=== PATIENT | male | born 1970 | race Two or more races ===

== ENCOUNTER 2022-04-05 14:02 | Inpatient (IN) | payer MEDICAID ==
[~2022-04-05] VITALS: Ht 165.1 cm; Wt 110.2 kg
[~2022-04-05 14:02] MED LIST: APIX5TAB PO; AZIT500T66 PO; LEVO750T8 PO; METH750T22 PO
[2022-04-05] MEDS ORDERED: SODIUM CHLORIDE 0.9% 1,000 ML IV ONE (18:00)
[2022-04-05 18:08] LABS: Basophils # (auto) 0.1 10 ^3/uL (0-0.2); Basophils % (auto) 0.6 % (0.0-2.0); Eosinophils # (auto) 0.1 10 ^3/uL (0-0.8); Eosinophils % (auto) 0.4 % (0.0-7.0); Hemoglobin 14.7 g/dL (13.5-17.5); Lymphocytes # (auto) 0.8 10 ^3/uL (0.4-5.4); Lymphocytes % (auto) 6.3 % (10.0-50.0); Mean Corpuscular Hemoglobin 27.1 pg (28.0-32.0); Mean Corpuscular Hgb Conc. 32.7 g/dL (32.0-36.0); Mean Corpuscular Volume 82.7 fL (80.0-100.0); Monocytes # (auto) 0.7 10 ^3/uL (0-1.3); Monocytes % (auto) 5.3 % (0.0-12.0); Neutrophils # (auto) 11.2 10 ^3/uL (1.6-8.6); Neutrophils % (auto) 87.4 % (37.0-80.0); Nucleated Red Blood Cells % 0.2 %; Red Blood Cells 5.44 10^6/uL (4.5-5.90); Red Cell Distribution Width 15.8 % (11.8-14.3); White Blood Cell 12.8 10^3/uL (4.4-10.8)
[2022-04-05 18:16] LABS: Albumin 3.1 g/dL (3.4-5.0); BUN/Creatinine Ratio 17.9; Calcium 9.1 mg/dL (8.5-10.1); Potassium 4.2 mmol/L (3.5-5.1)
[2022-04-05 18:19] LABS: Bilirubin, Total 0.7 mg/dL (0.2-1.0); Total Protein 7.6 g/dL (6.4-8.2)
[2022-04-05 18:49] LABS: CRP High Sensitivity 5.61 mg/dL (< 0.3)
[2022-04-05] MEDS: SODIUM CHLORIDE 0.9% 1,000 ML IV SCH (19:15)
[2022-04-05] MEDS ORDERED: ACETAMINOPHEN 325 MG TAB PO PRN (19:15)
[2022-04-05] MEDS ORDERED: ONDANSETRON HCL 4 MG/2 ML VIAL IV PRN ×2 (19:15→19:45)
[2022-04-05] MEDS ORDERED: DOCUSATE SOD 100 MG CAP PO PRN (19:45)
[2022-04-05] MEDS ORDERED: levoFLOXacin 500MG 100 ML IV SCH (19:52)
[2022-04-05] MEDS ORDERED: cefTRIAXone 1GM/50ML D5W 50 ML IV ONE (20:00)
[2022-04-06 03:29] LABS: Urine Bacteria MOD /hpf (None Seen); Urine Blood 3+ /uL (Negative); Urine Mucus FEW (None Seen); Urine Specific Gravity 1.017 (1.001-1.035); Urine WBC 64 /hpf (0 - 3)
[2022-04-06 06:26] LABS: Basophils # (auto) 0 10 ^3/uL (0-0.2); Basophils % (auto) 0.2 % (0.0-2.0); Eosinophils # (auto) 0 10 ^3/uL (0-0.8); Eosinophils % (auto) 0.1 % (0.0-7.0); Hematocrit 41.9 % (41.0-53.0); Hemoglobin 14.1 g/dL (13.5-17.5); Lymphocytes # (auto) 2.3 10 ^3/uL (0.4-5.4); Lymphocytes % (auto) 16.3 % (10.0-50.0); Mean Corpuscular Hemoglobin 27.3 pg (28.0-32.0); Mean Corpuscular Hgb Conc. 33.7 g/dL (32.0-36.0); Monocytes # (auto) 1.3 10 ^3/uL (0-1.3); Monocytes % (auto) 9.2 % (0.0-12.0); Neutrophils # (auto) 10.6 10 ^3/uL (1.6-8.6); Neutrophils % (auto) 74.2 % (37.0-80.0); Nucleated Red Blood Cells % 0.1 %; Red Blood Cells 5.17 10^6/uL (4.5-5.90); White Blood Cell 14.3 10^3/uL (4.4-10.8)
[2022-04-06 06:55] LABS: Potassium 4.5 mmol/L (3.5-5.1)
[2022-04-06 07:02] LABS: Albumin 2.8 g/dL (3.4-5.0); Bilirubin, Total 0.9 mg/dL (0.2-1.0); Total Protein 7.4 g/dL (6.4-8.2)
[2022-04-06] MEDS ORDERED: cefTRIAXone 1GM/50ML D5W 50 ML IV SCH (09:00)
[2022-04-06] MEDS ORDERED: ENOXAPARIN SOD 40 MG/0.4 ML SYRINGE SC SCH ×2 (10:00)
[2022-04-06] MEDS: APIXABAN 5 MG TAB PO SCH ×3 (11:08→22:45)
[2022-04-06] MEDS: ACETAMINOPHEN 325 MG TAB PO PRN (12:12)
[2022-04-06 14:20] VITALS: BP 86/55
[2022-04-06] MEDS: SODIUM CHLORIDE 0.9% 1,000 ML IV SCH (15:15)
[2022-04-06 15:21] VITALS: BP 96/58
[2022-04-06 17:00] VITALS: BP 83/49
[2022-04-06] MEDS ORDERED: SODIUM CHLORIDE 0.9% 1,000 ML IV ONE (17:15)
[2022-04-06] MEDS ORDERED: CIPROFLOXACIN 400MG/200ML 200 ML IV ONE (17:30)
[2022-04-06] MEDS ORDERED: CLINDAMYCIN 600MG IV 50 ML IV ONE (17:30)
[2022-04-06 20:00] VITALS: BP 89/46
[2022-04-06] MEDS ORDERED: DAPTOmycin 500 MG in SODIUM CHL 0.9% 50 ML IV SCH (20:00)
[2022-04-06 22:00] VITALS: BP 89/46
[2022-04-06] MEDS ORDERED: CLINDAMYCIN 600MG IV 50 ML IV SCH (22:00)
[2022-04-07] VITALS (7 sets, daily range): BP systolic 86–174; BP diastolic 56–88
[2022-04-07] MEDS: SODIUM CHLORIDE 0.9% 1,000 ML IV SCH ×5 (01:15→21:15)
[2022-04-07] MEDS: CIPROFLOXACIN 400MG/200ML 200 ML IV SCH ×4 (02:09→22:56)
[2022-04-07 08:04] LABS: Basophils # (auto) 0 10 ^3/uL (0-0.2); Eosinophils # (auto) 0.2 10 ^3/uL (0-0.8); Monocytes # (auto) 0.8 10 ^3/uL (0-1.3); Neutrophils # (auto) 6.6 10 ^3/uL (1.6-8.6); White Blood Cell 9.2 10^3/uL (4.4-10.8)
[2022-04-07 08:06] LABS: Basophils % (auto) 0.3 % (0.0-2.0); Eosinophils % (auto) 2.1 % (0.0-7.0); Hematocrit 40.2 % (41.0-53.0); Hemoglobin 13.3 g/dL (13.5-17.5); Lymphocytes # (auto) 1.6 10 ^3/uL (0.4-5.4); Mean Corpuscular Hemoglobin 26.9 pg (28.0-32.0); Mean Corpuscular Volume 81.3 fL (80.0-100.0); Monocytes % (auto) 8.8 % (0.0-12.0); Neutrophils % (auto) 71.8 % (37.0-80.0); Nucleated Red Blood Cells % 0.1 %; Red Blood Cells 4.94 10^6/uL (4.5-5.90); Red Cell Distribution Width 15.8 % (11.8-14.3)
[2022-04-07 08:33] LABS: Potassium 4.2 mmol/L (3.5-5.1)
[2022-04-07 08:36] LABS: BUN/Creatinine Ratio 20.7
[2022-04-07] MEDS: APIXABAN 5 MG TAB PO SCH ×2 (11:05→22:56)
[2022-04-07] MEDS: ACETAMINOPHEN 325 MG TAB PO PRN (11:21)
[2022-04-08 05:00] VITALS: BP 139/93
[2022-04-08] MEDS: CIPROFLOXACIN 400MG/200ML 200 ML IV SCH (06:19)
[2022-04-08] MEDS: SODIUM CHLORIDE 0.9% 1,000 ML IV SCH (07:42)
[2022-04-08 09:00] VITALS: BP 149/87
[2022-04-08] MEDS: APIXABAN 5 MG TAB PO SCH ×2 (09:45→21:46)
[2022-04-08 13:00] VITALS: BP 150/97
[2022-04-08] MEDS ORDERED: MEROPENEM 1GM IVPB 100 ML IV ONE (13:15)
[2022-04-08] MEDS ORDERED: diphenhdrAMINE HCL 25 MG CAP PO ONE (14:45)
[2022-04-08] MEDS ORDERED: diphenhdrAMINE HCL 25 MG CAP PO PRN (15:00)
[2022-04-08] MEDS: MEROPENEM 1GM IVPB 100 ML IV SCH ×2 (15:07→22:57)
[2022-04-08 16:43] VITALS: BP 89/58
[2022-04-08 22:00] VITALS: BP 141/80
[2022-04-09 05:18] VITALS: BP 119/84
[2022-04-09] MEDS: MEROPENEM 1GM IVPB 100 ML IV SCH (05:34)
[2022-04-09 09:00] VITALS: BP 154/94
[2022-04-09] MEDS: APIXABAN 5 MG TAB PO SCH ×2 (09:59→23:41)
[2022-04-09] MEDS: LINEZOLID 600MG/300ML 300 ML IV SCH ×2 (12:42→23:41)
[2022-04-09 12:50] VITALS: BP 116/77
[2022-04-09] MEDS: AZTREONAM 1GM INJ 1 GM in D5W 5% 50 ML IV SCH ×2 (14:49→21:33)
[2022-04-09 16:43] VITALS: BP 147/108
[2022-04-09 22:00] VITALS: BP 101/66
[2022-04-10 05:00] VITALS: BP 147/90
[2022-04-10] MEDS: AZTREONAM 1GM INJ 1 GM in D5W 5% 50 ML IV SCH ×3 (05:07→22:57)
[2022-04-10 05:10] LABS: BUN/Creatinine Ratio 14.3; Calcium 8.6 mg/dL (8.5-10.1)
[2022-04-10 05:32] LABS: Hemoglobin 13.2 g/dL (13.5-17.5); Red Cell Distribution Width 15.9 % (11.8-14.3)
[2022-04-10 05:34] LABS: Hematocrit 39.5 % (41.0-53.0); Mean Corpuscular Hgb Conc. 33.5 g/dL (32.0-36.0); Mean Corpuscular Volume 80.7 fL (80.0-100.0); White Blood Cell 5.5 10^3/uL (4.4-10.8)
[2022-04-10 05:42] LABS: Basophils % (manual) 0 (0.0-2.0); Blast Cells 0; Metamyelocytes % 0; Promyelocytes % 0; Reactive Lymphocytes 0
[2022-04-10 06:47] LABS: Band Neutrophils % (manual) 2; Eosinophils % (manual) 2 (0-7); Lymphocytes % (manual) 35 (10.0-50.0); Monocytes % (manual) 9 (0-12); Myelocytes % 2
[2022-04-10 09:00] VITALS: BP 155/96
[2022-04-10] MEDS: LINEZOLID 600MG/300ML 300 ML IV SCH ×2 (10:29→22:57)
[2022-04-10] MEDS: APIXABAN 5 MG TAB PO SCH ×2 (10:29→22:58)
[2022-04-10 12:58] VITALS: BP 155/92
[2022-04-10 16:51] VITALS: BP 154/90
[2022-04-10 22:00] VITALS: BP 106/76
[2022-04-10] MEDS: METHOCARBAMOL 500 MG TAB PO SCH (23:18)
[2022-04-11 05:00] VITALS: BP 119/82
[2022-04-11] MEDS: AZTREONAM 1GM INJ 1 GM in D5W 5% 50 ML IV SCH ×3 (06:00→22:58)
[2022-04-11 09:00] VITALS: BP 163/99
[2022-04-11] MEDS: LINEZOLID 600MG/300ML 300 ML IV SCH ×2 (09:51→22:59)
[2022-04-11] MEDS: METHOCARBAMOL 500 MG TAB PO SCH ×2 (09:52→22:59)
[2022-04-11] MEDS: APIXABAN 5 MG TAB PO SCH ×2 (09:52→22:59)
[2022-04-11 13:00] VITALS: BP 155/108
[2022-04-11 17:00] VITALS: BP 155/97
[2022-04-11 22:00] VITALS: BP 135/88
[2022-04-11] MEDS: Juven Fruit Punch Powder PACKET 28.8gm PO SCH (22:59)
[2022-04-12 05:00] VITALS: BP 100/70
[2022-04-12] MEDS: AZTREONAM 1GM INJ 1 GM in D5W 5% 50 ML IV SCH (06:13)
[2022-04-12 09:52] VITALS: BP 165/99
[2022-04-12] MEDS: APIXABAN 5 MG TAB PO SCH ×2 (10:12→23:09)
[2022-04-12] MEDS: LINEZOLID 600MG/300ML 300 ML IV SCH (10:12)
[2022-04-12] MEDS: METHOCARBAMOL 500 MG TAB PO SCH ×2 (10:13→23:10)
[2022-04-12 12:15] VITALS: BP 105/74
[2022-04-12] MEDS: Juven Fruit Punch Powder PACKET 28.8gm PO SCH ×2 (14:54→23:10)
[2022-04-12] MEDS ORDERED: LINE1TAB6 PO (16:27)
[2022-04-12 16:56] VITALS: BP 132/90
[2022-04-12 22:00] VITALS: BP 132/75
[2022-04-12] MEDS: LINEZOLID 600MG TABLET PO SCH (23:10)
[2022-04-13 05:00] VITALS: BP 115/81
[2022-04-13 08:37] VITALS: BP 144/97
[2022-04-13] MEDS: LINEZOLID 600MG TABLET PO SCH (10:09)
[2022-04-13] MEDS: APIXABAN 5 MG TAB PO SCH (10:11)
[2022-04-13] MEDS: Juven Fruit Punch Powder PACKET 28.8gm PO SCH (10:11)
[2022-04-13] MEDS: METHOCARBAMOL 500 MG TAB PO SCH (10:11)
[2022-04-13 12:05] VITALS: BP 132/94
[2022-04-13 14:46] VITALS: BP 107/82
== END 2022-04-13 14:30 | disposition home or self-care (01) | DRG 720 ==
LOC: EDBD 14:02 → ER 14:02 → OVERFLOW 19:04 → WEST WING 04-06 14:09
PROVIDERS: ADMIT Nurse Practitioner Family; ATTEND Student in an Organized Health Care Education/Training Program
DX: A41.02 Sepsis due to Methicillin resistant Staphylococcus aureus (principal); G82.50 Quadriplegia, unspecified; E44.1 Mild protein-calorie malnutrition; L89.152 Pressure ulcer of sacral region, stage 2; N12 Tubulo-interstitial nephritis, not specified as acute or chronic; E66.9 Obesity, unspecified; K21.9 Gastro-esophageal reflux disease without esophagitis; L30.9 Dermatitis, unspecified; Z20.822 Contact with and (suspected) exposure to COVID-19; Z88.1 Allergy status to other antibiotic agents; Z93.3 Colostomy status; Z88.0 Allergy status to penicillin; Z82.49 Family history of ischemic heart disease and other diseases of the circulatory system; Z74.01 Bed confinement status; Z68.27 Body mass index [BMI] 27.0-27.9, adult; Z88.8 Allergy status to other drugs, medicaments and biological substances; Z87.440 Personal history of urinary (tract) infections
CPT/HCPCS: 36415; 71045; 80048; 80053; 81001; 83605; 83880; 85007; 85025; 85027; 86141; 87040; 87077; 87086; 87088; 87186; 87426; 93005; 93306; G0378; J1956; J2185; J7060

== ENCOUNTER 2022-08-07 12:25 | Emergency (ER) | payer MEDICAID ==
[~2022-08-07] VITALS: Ht 182.9 cm; Wt 95.5 kg
[~2022-08-07 12:25] MED LIST changes: +LINE1TAB6 PO
[2022-08-07 13:39] LABS: Basophils # (auto) 0 10 ^3/uL (0-0.2); Hematocrit 40.8 % (41.0-53.0); Hemoglobin 14.1 g/dL (13.5-17.5); Lymphocytes # (auto) 1.3 10 ^3/uL (0.4-5.4); Mean Corpuscular Hgb Conc. 34.6 g/dL (32.0-36.0); White Blood Cell 7.1 10^3/uL (4.4-10.8)
[2022-08-07 13:41] LABS: Basophils % (auto) 0.4 % (0.0-2.0); Eosinophils # (auto) 0.2 10 ^3/uL (0-0.8); Eosinophils % (auto) 3.4 % (0.0-7.0); Lymphocytes % (auto) 18.2 % (10.0-50.0); Mean Corpuscular Hemoglobin 25.9 pg (28.0-32.0); Mean Corpuscular Volume 74.9 fL (80.0-100.0); Monocytes # (auto) 0.4 10 ^3/uL (0-1.3); Monocytes % (auto) 5.4 % (0.0-12.0); Neutrophils # (auto) 5.2 10 ^3/uL (1.6-8.6); Neutrophils % (auto) 72.6 % (37.0-80.0); Nucleated Red Blood Cells % 0.8 %; Red Blood Cells 5.44 10^6/uL (4.5-5.90)
[2022-08-07 14:12] LABS: Albumin 2.7 g/dL (3.4-5.0); BUN/Creatinine Ratio 30.3; Calcium 9.4 mg/dL (8.5-10.1)
[2022-08-07 14:15] LABS: Bilirubin, Total 0.6 mg/dL (0.2-1.0); Total Protein 7.3 g/dL (6.4-8.2)
[2022-08-07 19:40] LABS: Urine Bacteria FEW /hpf (None Seen); Urine Blood 1+ /uL (Negative); Urine Specific Gravity 1.008 (1.001-1.035); Urine WBC 293 /hpf (0 - 3)
[2022-08-07] MEDS ORDERED: CIPR-173 PO (20:17)
[2022-08-07] MEDS ORDERED: CIPROFLOXACIN HCL 500 MG TAB PO ONE (20:30)
[2022-08-08 11:20] VITALS: BP 120/76
== END 2022-08-08 12:19 | disposition home or self-care (01) ==
LOC: EDBD 12:25 → ER 12:25
DX: Z46.6 Encounter for fitting and adjustment of urinary device (principal); N39.0 Urinary tract infection, site not specified; K21.9 Gastro-esophageal reflux disease without esophagitis; Z79.2 Long term (current) use of antibiotics; Z79.899 Other long term (current) drug therapy; Z88.0 Allergy status to penicillin; Z88.1 Allergy status to other antibiotic agents
CPT/HCPCS: 36415; 51702; 80053; 81001; 85025

== ENCOUNTER 2023-02-16 17:35 | Inpatient (IN) | payer MEDICARE, MEDICAID ==
[~2023-02-16] VITALS: Ht 182.9 cm; Wt 108.9 kg
[~2023-02-16 17:35] MED LIST changes: +ATOR20TA50 PO; -AZIT500T66 PO; +CIPR-173 PO; -LEVO750T8 PO; -LINE1TAB6 PO; +METH-1182 PO; -METH750T22 PO
[2023-02-16 18:40] VITALS: PULSE 75; RESP 13; O2SAT 93
[2023-02-16 19:30] VITALS: PULSE 75; RESP 20; O2SAT 94
[2023-02-16 19:35] LABS: Basophils # (auto) 0 10 ^3/uL (0-0.2); Eosinophils # (auto) 0.2 10 ^3/uL (0-0.8); Lymphocytes # (auto) 1.4 10 ^3/uL (0.4-5.4); Mean Corpuscular Hgb Conc. 33.4 g/dL (32.0-36.0); Monocytes # (auto) 0.3 10 ^3/uL (0-1.3); White Blood Cell 4.9 10^3/uL (4.4-10.8)
[2023-02-16 19:37] LABS: Basophils % (auto) 0.8 % (0.0-2.0); Eosinophils % (auto) 3.6 % (0.0-7.0); Hematocrit 46.3 % (41.0-53.0); Hemoglobin 15.4 g/dL (13.5-17.5); Lymphocytes % (auto) 27.9 % (10.0-50.0); Mean Corpuscular Volume 78.1 fL (80.0-100.0); Monocytes % (auto) 6.7 % (0.0-12.0); Nucleated Red Blood Cells % 0.3 %; Red Blood Cells 5.93 10^6/uL (4.5-5.90); Red Cell Distribution Width 18.2 % (11.8-14.3)
[2023-02-16 19:49] LABS: Alanine Aminotransferase 12 U/L (7-40); Albumin 3.8 g/dL (3.2-4.8); Alkaline Phosphatase 119 U/L (46-116); Anion Gap 6 (5-15); Aspartate Aminotransferase 12 U/L (13-40); BUN/Creatinine Ratio 11.8 (10.0-20.0); Bilirubin, Total 0.4 mg/dL (0.2-1.0); Blood Urea Nitrogen 9 mg/dL (9-23); Calcium 9.3 mg/dL (8.7-10.4); Carbon Dioxide 26 mmol/L (20-30); Chloride 107 mmol/L (98-107); Glucose 135 mg/dL (74-106); Potassium 4.1 mmol/L (3.5-5.1); Sodium 139 mmol/L (136-145); Total Protein 7.5 g/dL (5.7-8.2)
[2023-02-16 20:13] LABS: Urine Bacteria FEW /hpf (None Seen); Urine Blood TRACE /uL (Negative); Urine Budding Yeast FEW /hpf (None Seen); Urine Clarity HAZY (Clear); Urine Color Yellow (Yellow); Urine Mucus FEW (None Seen); Urine Protein, UAD 1+ (Negative); Urine Specific Gravity 1.018 (1.001-1.035); Urine Urobilinogen Normal (Negative); Urine WBC 49 /hpf (0 - 3); Urine pH 7.5 (5.0-8.0)
[2023-02-16] MEDS ORDERED: DOCUSATE SOD 100 MG CAP PO PRN (21:00)
[2023-02-16] MEDS ORDERED: HYDROcodone-ACET 5/325MG TAB PO PRN (21:00)
[2023-02-16] MEDS ORDERED: ACETAMINOPHEN 325 MG TAB PO PRN (21:00)
[2023-02-16] MEDS ORDERED: ONDANSETRON HCL 4 MG/2 ML VIAL IV PRN (21:00)
[2023-02-16] MEDS: levoFLOXacin 500MG 100 ML IV SCH ×2 (22:00→22:14)
[2023-02-16] MEDS: SODIUM CHLORIDE 0.9% 1,000 ML IV SCH (22:10)
[2023-02-16] MEDS: FAMOTIDINE (10MG/ML) 2ML VL IV SCH (22:14)
[2023-02-16] MEDS ORDERED: MORPHINE SULFATE INJ 2 MG/ml SYRG IV PRN (22:45)
[2023-02-16] MEDS ORDERED: NITROGLYCERIN 0.4 MG SL TAB SL PRN (22:45)
[2023-02-17 05:45] LABS: Basophils # (auto) 0 10 ^3/uL (0-0.2); Monocytes # (auto) 0.4 10 ^3/uL (0-1.3); Nucleated Red Blood Cells % 0.2 %; White Blood Cell 5.5 10^3/uL (4.4-10.8)
[2023-02-17 05:48] LABS: Basophils % (auto) 0.6 % (0.0-2.0); Eosinophils # (auto) 0.1 10 ^3/uL (0-0.8); Eosinophils % (auto) 2.6 % (0.0-7.0); Hematocrit 40.5 % (41.0-53.0); Hemoglobin 13.6 g/dL (13.5-17.5); Lymphocytes # (auto) 2.2 10 ^3/uL (0.4-5.4); Lymphocytes % (auto) 39.6 % (10.0-50.0); Mean Corpuscular Hemoglobin 26.2 pg (28.0-32.0); Mean Corpuscular Hgb Conc. 33.7 g/dL (32.0-36.0); Mean Corpuscular Volume 77.9 fL (80.0-100.0); Monocytes % (auto) 6.8 % (0.0-12.0); Neutrophils # (auto) 2.8 10 ^3/uL (1.6-8.6); Neutrophils % (auto) 50.4 % (37.0-80.0); Red Blood Cells 5.19 10^6/uL (4.5-5.90); Red Cell Distribution Width 18.1 % (11.8-14.3)
[2023-02-17 06:06] LABS: Alanine Aminotransferase 11 U/L (7-40); Albumin 3.4 g/dL (3.2-4.8); Alkaline Phosphatase 100 U/L (46-116); Anion Gap 6 (5-15); Aspartate Aminotransferase 8 U/L (13-40); BUN/Creatinine Ratio 13.4 (10.0-20.0); Bilirubin, Total 0.4 mg/dL (0.2-1.0); Blood Urea Nitrogen 9 mg/dL (9-23); Calcium 8.5 mg/dL (8.7-10.4); Carbon Dioxide 25 mmol/L (20-30); Chloride 110 mmol/L (98-107); Glucose 89 mg/dL (74-106); Potassium 3.6 mmol/L (3.5-5.1); Sodium 141 mmol/L (136-145); Total Protein 6.5 g/dL (5.7-8.2)
[2023-02-17 08:24] VITALS: PULSE 71; RESP 19; O2SAT 99
[2023-02-17] MEDS ORDERED: ASPirin 81 mg TAB PO SCH (10:00)
[2023-02-17] MEDS: APIXABAN 5 MG TAB PO SCH ×2 (10:06→21:09)
[2023-02-17] MEDS: FAMOTIDINE (10MG/ML) 2ML VL IV SCH ×2 (10:06→21:09)
[2023-02-17] MEDS ORDERED: TAMS0.4C36 PO (10:12)
[2023-02-17 13:15] VITALS: BP 93/65; PULSE 64; RESP 16; TEMP 98.6; O2SAT 98
[2023-02-17] MEDS: SODIUM CHLORIDE 0.9% 1,000 ML IV SCH (13:46)
[2023-02-17 16:36] VITALS: PULSE 64; RESP 16; O2SAT 98
[2023-02-17 17:00] VITALS: BP 102/70; PULSE 63; RESP 16; TEMP 97.6; O2SAT 98
[2023-02-17 20:00] VITALS: RESP 19; O2SAT 94
[2023-02-17 22:00] VITALS: BP 138/92; PULSE 65; RESP 18; TEMP 98.2; O2SAT 100
[2023-02-17] MEDS: levoFLOXacin 500MG 100 ML IV SCH (22:00)
[2023-02-18] VITALS (7 sets, daily range): BP systolic 125–171; BP diastolic 87–104; PULSE 61–75; RESP 16–19; TEMP 98–98.5; O2SAT 95–100
[2023-02-18] MEDS: SODIUM CHLORIDE 0.9% 1,000 ML IV SCH ×2 (05:31→21:01)
[2023-02-18] MEDS: FAMOTIDINE (10MG/ML) 2ML VL IV SCH ×2 (10:55→21:37)
[2023-02-18] MEDS: APIXABAN 5 MG TAB PO SCH ×2 (10:55→21:37)
[2023-02-18] MEDS: levoFLOXacin 500MG 100 ML IV SCH (21:37)
[2023-02-19 05:00] VITALS: BP 156/102; PULSE 62; RESP 18; TEMP 98.1; O2SAT 95
[2023-02-19 06:52] VITALS: BP 147/100
[2023-02-19] MEDS ORDERED: cloNIDine HCL 0.1 MG TAB PO ONE (07:00)
[2023-02-19 08:00] VITALS: PULSE 65; RESP 18; O2SAT 95
[2023-02-19 09:00] VITALS: BP 159/97; PULSE 65; RESP 18; TEMP 98.4; O2SAT 100
[2023-02-19] MEDS: APIXABAN 5 MG TAB PO SCH (10:00)
[2023-02-19] MEDS: FAMOTIDINE (10MG/ML) 2ML VL IV SCH (10:00)
[2023-02-19] MEDS ORDERED: BACDST PO (10:22)
[2023-02-19] MEDS ORDERED: CIPR-173 PO (10:22)
[2023-02-19 13:00] VITALS: BP 115/83; PULSE 71; RESP 18; TEMP 98.8; O2SAT 96
[2023-02-19] MEDS: SODIUM CHLORIDE 0.9% 1,000 ML IV SCH (15:40)
[2023-02-19 16:46] VITALS: BP 127/97; PULSE 74; RESP 16; TEMP 98.4; O2SAT 97
== END 2023-02-19 19:13 | disposition home health service (06) | DRG 698 ==
LOC: ER 17:35 → EDBD 17:35 → EDUNIT# 17:35 → OVERFLOW 22:40 → CENTRAL 02-17 13:18
PROVIDERS: ADMIT Nurse Practitioner Family; ATTEND Family Medicine
DX: T83.018A Breakdown (mechanical) of other urinary catheter, initial encounter (principal); L89.154 Pressure ulcer of sacral region, stage 4; N39.0 Urinary tract infection, site not specified; I10 Essential (primary) hypertension; E78.00 Pure hypercholesterolemia, unspecified; K21.9 Gastro-esophageal reflux disease without esophagitis; N31.9 Neuromuscular dysfunction of bladder, unspecified; B96.4 Proteus (mirabilis) (morganii) as the cause of diseases classified elsewhere; Y73.2 Prosthetic and other implants, materials and accessory gastroenterology and urology devices associated with adverse incidents; Y92.89 Other specified places as the place of occurrence of the external cause; Z87.440 Personal history of urinary (tract) infections; Z88.0 Allergy status to penicillin; Z88.1 Allergy status to other antibiotic agents; Z93.3 Colostomy status; Z79.899 Other long term (current) drug therapy; B95.62 Methicillin resistant Staphylococcus aureus infection as the cause of diseases classified elsewhere; V89.2XXS Person injured in unspecified motor-vehicle accident, traffic, sequela
CPT/HCPCS: 36415; 76775; 80053; 81001; 85025; 87040; 87086; 87088; 87186; G0378; J1956; J3490

== ENCOUNTER 2023-04-26 15:26 | Inpatient (IN) | payer MEDICARE, MEDICAID ==
[~2023-04-26] VITALS: Ht 172.7 cm; Wt 113.3 kg
[~2023-04-26 15:26] MED LIST changes: +BACDST PO; +TAMS0.4C36 PO
[2023-04-26 17:23] LABS: Hemoglobin 15.1 g/dL (13.5-17.5); Mean Corpuscular Hemoglobin 26.7 pg (28.0-32.0); Mean Corpuscular Hgb Conc. 33.7 g/dL (32.0-36.0); Red Cell Distribution Width 16.7 % (11.8-14.3)
[2023-04-26 17:25] LABS: Hematocrit 44.8 % (41.0-53.0); Mean Corpuscular Volume 79.4 fL (80.0-100.0); Red Blood Cells 5.64 10^6/uL (4.5-5.90); White Blood Cell 6.8 10^3/uL (4.4-10.8)
[2023-04-26 17:26] VITALS: PULSE 14; RESP 14; O2SAT 99
[2023-04-26 17:26] LABS: Basophils % (manual) 0 (0.0-2.0); Blast Cells 0; Metamyelocytes % 0; Myelocytes % 0; Promyelocytes % 0; Reactive Lymphocytes 0
[2023-04-26 17:43] LABS: INR 0.97 (0.9-1.15); Partial Thromboplastin Time 36.5 SEC (24.5-34.5); Prothrombin Time 10.2 sec (9.3-11.8)
[2023-04-26 17:44] LABS: Alanine Aminotransferase 21 U/L (7-40); Albumin 4.3 g/dL (3.2-4.8); Alkaline Phosphatase 102 U/L (46-116); Anion Gap 9 (5-15); Aspartate Aminotransferase 16 U/L (13-40); BUN/Creatinine Ratio 16.2 (10.0-20.0); Blood Urea Nitrogen 11 mg/dL (9-23); Calcium 9.7 mg/dL (8.7-10.4); Carbon Dioxide 25 mmol/L (20-30); Chloride 105 mmol/L (98-107); Glucose 115 mg/dL (74-106); Potassium 4.4 mmol/L (3.5-5.1); Sodium 139 mmol/L (136-145)
[2023-04-26 17:45] LABS: Bilirubin, Total 0.3 mg/dL (0.2-1.0)
[2023-04-26 19:02] LABS: Urine Bacteria NONE SEEN /hpf (None Seen); Urine Blood 3+ /uL (Negative); Urine Budding Yeast MANY /hpf (None Seen); Urine Clarity CLOUDY (Clear); Urine Mucus FEW (None Seen); Urine Protein, UAD 2+ (Negative); Urine Specific Gravity 1.019 (1.001-1.035); Urine Urobilinogen Normal (Negative); Urine WBC 1295 /hpf (0 - 3); Urine WBC Clumps PRESENT /hpf (None Seen)
[2023-04-26 19:06] LABS: Urine Color Yellow (Yellow)
[2023-04-26 19:35] VITALS: PULSE 90; RESP 18; O2SAT 99
[2023-04-26 19:39] LABS: Band Neutrophils % (manual) 2; Eosinophils % (manual) 1 (0-7); Lymphocytes % (manual) 23 (10.0-50.0); Monocytes % (manual) 7 (0-12); Platelet Estimate Adequate
[2023-04-26] MEDS ORDERED: SODIUM CHLORIDE 0.9% 2,750 ML IV ONE ×3 (20:15→23:30)
[2023-04-26] MEDS ORDERED: cefTRIAXone 1GM/50ML D5W 50 ML IV SCH (20:15)
[2023-04-26] MEDS ORDERED: ACETAMINOPHEN 325 MG TAB PO PRN ×2 (20:15→20:45)
[2023-04-26] MEDS ORDERED: DOCUSATE SOD 100 MG CAP PO PRN (20:45)
[2023-04-26] MEDS ORDERED: ONDANSETRON HCL 4 MG/2 ML VIAL IV PRN (20:45)
[2023-04-26] MEDS ORDERED: diphenhdrAMINE HCL 25 MG CAP PO ONE (20:45)
[2023-04-26] MEDS ORDERED: cefTRIAXone W LIDOCAINE 1 GM IM IM ONE (20:45)
[2023-04-26 21:17] LABS: Erythrocyte Sedimentation Rate 50 mm/hr (0-20)
[2023-04-26 21:33] LABS: INR 0.99 (0.9-1.15); Prothrombin Time 10.4 sec (9.3-11.8)
[2023-04-26 21:44] LABS: Lactic Acid w/Reflex 2.7 mmol/L (0.4-2.0)
[2023-04-26] MEDS ORDERED: METHOCARBAMOL 500 MG TAB PO PRN (22:00)
[2023-04-26] MEDS: APIXABAN 5 MG TAB PO SCH (22:29)
[2023-04-27] MEDS ORDERED: SODIUM CHLORIDE 0.9% 2,750 ML IV ONE (00:30)
[2023-04-27 03:44] LABS: Alanine Aminotransferase 17 U/L (7-40); Alkaline Phosphatase 82 U/L (46-116); Anion Gap 8 (5-15); Aspartate Aminotransferase 13 U/L (13-40); BUN/Creatinine Ratio 18.5 (10.0-20.0); Basophils # (auto) 0 10 ^3/uL (0-0.2); Blood Urea Nitrogen 12 mg/dL (9-23); Calcium 8.1 mg/dL (8.7-10.4); Carbon Dioxide 23 mmol/L (20-30); Chloride 110 mmol/L (98-107); Eosinophils # (auto) 0.2 10 ^3/uL (0-0.8); Eosinophils % (auto) 2.2 % (0.0-7.0); Glucose 93 mg/dL (74-106); Hemoglobin 12.6 g/dL (13.5-17.5); Monocytes # (auto) 0.6 10 ^3/uL (0-1.3); Sodium 141 mmol/L (136-145)
[2023-04-27 03:45] LABS: Albumin 3.5 g/dL (3.2-4.8); Bilirubin, Total 0.2 mg/dL (0.2-1.0); Total Protein 6.4 g/dL (5.7-8.2)
[2023-04-27 03:56] LABS: Basophils % (auto) 0.5 % (0.0-2.0); Hematocrit 38.1 % (41.0-53.0); Lymphocytes # (auto) 2.4 10 ^3/uL (0.4-5.4); Lymphocytes % (auto) 31.4 % (10.0-50.0); Mean Corpuscular Hemoglobin 26.8 pg (28.0-32.0); Mean Corpuscular Hgb Conc. 33.2 g/dL (32.0-36.0); Mean Corpuscular Volume 80.6 fL (80.0-100.0); Monocytes % (auto) 8.1 % (0.0-12.0); Neutrophils # (auto) 4.4 10 ^3/uL (1.6-8.6); Neutrophils % (auto) 57.8 % (37.0-80.0); Nucleated Red Blood Cells % 0.1 %; Red Blood Cells 4.73 10^6/uL (4.5-5.90); Red Cell Distribution Width 16.5 % (11.8-14.3); White Blood Cell 7.5 10^3/uL (4.4-10.8)
[2023-04-27 05:00] VITALS: BP 104/70; PULSE 76; RESP 16; TEMP 98.8; O2SAT 97
[2023-04-27 08:00] VITALS: BP 118/70; PULSE 68; RESP 16; TEMP 98.1; O2SAT 97
[2023-04-27] MEDS ORDERED: cefTRIAXone 1GM/50ML D5W 50 ML IV SCH (09:00)
[2023-04-27] MEDS ORDERED: CALCIUM GLUC 1,000mg/50ml-NS 50 ML IV ONE (10:30)
[2023-04-27 11:46] LABS: Magnesium 1.8 mg/dL (1.6-2.6)
[2023-04-27] MEDS: APIXABAN 5 MG TAB PO SCH (12:04)
[2023-04-27] MEDS: PANTOPRAZOLE 40 MG TAB PO SCH (12:04)
[2023-04-27] MEDS: ATORVASTATIN 20 MG TAB PO SCH (12:04)
[2023-04-27] MEDS: CEFEPIME 2GM/50ML NS 50 ML IV SCH ×2 (14:09→22:31)
[2023-04-27] MEDS: TAMSULOSIN HYDROCHLORIDE 0.4 MG CAP PO SCH (18:06)
[2023-04-27 20:00] VITALS: BP 118/70; PULSE 68; PULSE 92; RESP 16; RESP 18; TEMP 98.1; O2SAT 97
[2023-04-27 22:00] VITALS: BP 119/70; PULSE 92; RESP 18; O2SAT 97
[2023-04-27] MEDS ORDERED: APIXABAN 5 MG TAB PO SCH (22:00)
[2023-04-27] MEDS: APIXABAN 2.5 MG TAB PO SCH (22:32)
[2023-04-28 05:00] VITALS: BP 141/81; PULSE 91; RESP 18; TEMP 98.7; O2SAT 98
[2023-04-28] MEDS: CEFEPIME 2GM/50ML NS 50 ML IV SCH ×3 (05:24→21:31)
[2023-04-28 06:40] LABS: Alanine Aminotransferase 14 U/L (7-40); Albumin 3.6 g/dL (3.2-4.8); Alkaline Phosphatase 87 U/L (46-116); Anion Gap 8 (5-15); Aspartate Aminotransferase 14 U/L (13-40); BUN/Creatinine Ratio 15.3 (10.0-20.0); Blood Urea Nitrogen 11 mg/dL (9-23); Calcium 8.8 mg/dL (8.7-10.4); Carbon Dioxide 22 mmol/L (20-30); Chloride 109 mmol/L (98-107); Glucose 178 mg/dL (74-106); Potassium 4.3 mmol/L (3.5-5.1); Sodium 139 mmol/L (136-145)
[2023-04-28 06:41] LABS: Bilirubin, Total 0.3 mg/dL (0.2-1.0); Total Protein 6.7 g/dL (5.7-8.2)
[2023-04-28 06:42] LABS: Hemoglobin 12.7 g/dL (13.5-17.5); Mean Corpuscular Hemoglobin 26.6 pg (28.0-32.0); Red Blood Cells 4.79 10^6/uL (4.5-5.90)
[2023-04-28 06:45] LABS: Hematocrit 38.9 % (41.0-53.0); Mean Corpuscular Hgb Conc. 32.8 g/dL (32.0-36.0); Mean Corpuscular Volume 81.3 fL (80.0-100.0); Red Cell Distribution Width 16.7 % (11.8-14.3); White Blood Cell 8.4 10^3/uL (4.4-10.8)
[2023-04-28 07:05] LABS: Basophils % (manual) 0 (0.0-2.0); Blast Cells 0; Promyelocytes % 0; Reactive Lymphocytes 0
[2023-04-28 08:00] VITALS: PULSE 74; RESP 19; O2SAT 96
[2023-04-28 09:00] VITALS: BP 140/82; PULSE 75; RESP 19; TEMP 99.4; O2SAT 95
[2023-04-28] MEDS: PANTOPRAZOLE 40 MG TAB PO SCH (09:02)
[2023-04-28] MEDS: APIXABAN 2.5 MG TAB PO SCH ×2 (09:02→21:29)
[2023-04-28] MEDS: ATORVASTATIN 20 MG TAB PO SCH (09:02)
[2023-04-28 09:30] LABS: Band Neutrophils % (manual) 8; Eosinophils % (manual) 2 (0-7); Lymphocytes % (manual) 10 (10.0-50.0); Metamyelocytes % 9; Monocytes % (manual) 6 (0-12); Myelocytes % 1; Platelet Estimate Adequate
[2023-04-28 13:00] VITALS: BP 148/90; PULSE 74; RESP 19; TEMP 98.8; O2SAT 96
[2023-04-28] MEDS: TAMSULOSIN HYDROCHLORIDE 0.4 MG CAP PO SCH (17:28)
[2023-04-28 20:00] VITALS: PULSE 81; RESP 18; O2SAT 99
[2023-04-28 22:00] VITALS: BP 142/87; PULSE 81; RESP 18; TEMP 98.2; O2SAT 99
[2023-04-29] MEDS ORDERED: diphenhdrAMINE HCL 25 MG CAP PO PRN (02:45)
[2023-04-29 05:00] VITALS: BP 142/86; PULSE 77; RESP 19; TEMP 98.5; O2SAT 95
[2023-04-29] MEDS: CEFEPIME 2GM/50ML NS 50 ML IV SCH ×3 (05:34→21:38)
[2023-04-29 05:51] LABS: Hematocrit 40.7 % (41.0-53.0); Hemoglobin 13.7 g/dL (13.5-17.5); Mean Corpuscular Hemoglobin 27.2 pg (28.0-32.0); Mean Corpuscular Hgb Conc. 33.6 g/dL (32.0-36.0); Mean Corpuscular Volume 81.1 fL (80.0-100.0); Red Blood Cells 5.03 10^6/uL (4.5-5.90); Red Cell Distribution Width 16.4 % (11.8-14.3); White Blood Cell 9.4 10^3/uL (4.4-10.8)
[2023-04-29 05:57] LABS: Basophils % (manual) 0 (0.0-2.0); Blast Cells 0; Promyelocytes % 0; Reactive Lymphocytes 0
[2023-04-29 05:59] LABS: Alanine Aminotransferase 18 U/L (7-40); Albumin 3.7 g/dL (3.2-4.8); Alkaline Phosphatase 83 U/L (46-116); Anion Gap 8 (5-15); Aspartate Aminotransferase 14 U/L (13-40); BUN/Creatinine Ratio 14.3 (10.0-20.0); Bilirubin, Total 0.4 mg/dL (0.2-1.0); Blood Urea Nitrogen 9 mg/dL (9-23); Carbon Dioxide 24 mmol/L (20-30); Chloride 106 mmol/L (98-107); Glucose 115 mg/dL (74-106); Potassium 4.2 mmol/L (3.5-5.1); Sodium 138 mmol/L (136-145); Total Protein 6.8 g/dL (5.7-8.2)
[2023-04-29 08:00] VITALS: PULSE 77; RESP 19; O2SAT 96
[2023-04-29 09:00] VITALS: BP 144/79; PULSE 77; RESP 18; TEMP 98.6; O2SAT 97
[2023-04-29 09:03] LABS: Band Neutrophils % (manual) 7; Eosinophils % (manual) 5 (0-7); Lymphocytes % (manual) 14 (10.0-50.0); Metamyelocytes % 6; Monocytes % (manual) 6 (0-12); Myelocytes % 6; Platelet Estimate Adequate
[2023-04-29] MEDS: diphenhdrAMINE HCL 25 MG CAP PO PRN ×2 (09:20→21:58)
[2023-04-29] MEDS: APIXABAN 2.5 MG TAB PO SCH ×2 (11:37→21:38)
[2023-04-29] MEDS: PANTOPRAZOLE 40 MG TAB PO SCH (11:37)
[2023-04-29] MEDS: ATORVASTATIN 20 MG TAB PO SCH (11:37)
[2023-04-29] MEDS ORDERED: SODIUM CHLORIDE 0.9% 1,000 ML IV SCH (13:00)
[2023-04-29 17:00] VITALS: BP 149/64; PULSE 80; RESP 18; TEMP 98.4; O2SAT 97
[2023-04-29] MEDS: TAMSULOSIN HYDROCHLORIDE 0.4 MG CAP PO SCH (18:55)
[2023-04-29 20:00] VITALS: RESP 19; O2SAT 96
[2023-04-29 21:52] VITALS: BP 118/80; PULSE 71; RESP 16; TEMP 97.9; O2SAT 95
[2023-04-30 04:43] VITALS: BP 132/79; PULSE 71; RESP 15; TEMP 97.4; O2SAT 95
[2023-04-30] MEDS: CEFEPIME 2GM/50ML NS 50 ML IV SCH (05:35)
[2023-04-30] MEDS: diphenhdrAMINE HCL 25 MG CAP PO PRN ×2 (05:35→11:30)
[2023-04-30 06:09] LABS: Basophils # (auto) 0 10 ^3/uL (0-0.2); Basophils % (auto) 0.3 % (0.0-2.0); Eosinophils # (auto) 0.5 10 ^3/uL (0-0.8); Eosinophils % (auto) 5.1 % (0.0-7.0); Monocytes # (auto) 0.6 10 ^3/uL (0-1.3); White Blood Cell 10.1 10^3/uL (4.4-10.8)
[2023-04-30 06:11] LABS: Hematocrit 42.1 % (41.0-53.0); Lymphocytes # (auto) 2.8 10 ^3/uL (0.4-5.4); Lymphocytes % (auto) 27.4 % (10.0-50.0); Mean Corpuscular Hgb Conc. 33.3 g/dL (32.0-36.0); Mean Corpuscular Volume 80.9 fL (80.0-100.0); Monocytes % (auto) 5.5 % (0.0-12.0); Neutrophils # (auto) 6.2 10 ^3/uL (1.6-8.6); Neutrophils % (auto) 61.7 % (37.0-80.0); Nucleated Red Blood Cells % 0.1 %; Red Blood Cells 5.21 10^6/uL (4.5-5.90)
[2023-04-30 06:20] LABS: Anion Gap 6 (5-15); Carbon Dioxide 23 mmol/L (20-30); Chloride 108 mmol/L (98-107); Potassium 4.8 mmol/L (3.5-5.1); Sodium 137 mmol/L (136-145)
[2023-04-30 06:21] LABS: Calcium 8.6 mg/dL (8.7-10.4)
[2023-04-30 06:26] LABS: BUN/Creatinine Ratio 15.6 (10.0-20.0); Blood Urea Nitrogen 10 mg/dL (9-23); Glucose 98 mg/dL (74-106)
[2023-04-30 09:00] VITALS: BP 107/73; PULSE 58; RESP 16; TEMP 98.3; O2SAT 95
[2023-04-30] MEDS ORDERED: CEFTRIAXONE SODIUM 2 GM in D5W 5% 100 ML IV ONE (10:15)
[2023-04-30] MEDS: APIXABAN 2.5 MG TAB PO SCH (11:30)
[2023-04-30] MEDS: PANTOPRAZOLE 40 MG TAB PO SCH (11:30)
[2023-04-30] MEDS: ATORVASTATIN 20 MG TAB PO SCH (11:30)
[2023-04-30 13:10] VITALS: BP 97/53; PULSE 76; RESP 18; TEMP 98; O2SAT 94
[2023-04-30 17:00] VITALS: BP 112/77; PULSE 63; RESP 20; TEMP 97.8; O2SAT 100
[2023-04-30] MEDS: TAMSULOSIN HYDROCHLORIDE 0.4 MG CAP PO SCH (18:00)
[2023-05-01] MEDS ORDERED: CEFTRIAXONE SODIUM 2 GM in D5W 5% 100 ML IV SCH (10:00)
== END 2023-04-30 18:20 | disposition home health service (06) | DRG 698 ==
LOC: ER 15:26 → EDBD 15:26 → OVERFLOW 20:44 → CENTRAL 04-27 03:10
PROVIDERS: ADMIT Internal Medicine; ATTEND Internal Medicine
PROC: 05HD33Z Insertion of Infusion Device into Right Cephalic Vein, Percutaneous Approach (ICD-10-PCS; principal; 2023-04-27)
PROC: B54MZZA Ultrasonography of Right Upper Extremity Veins, Guidance (ICD-10-PCS; 2023-04-27)
DX: T83.518A Infection and inflammatory reaction due to other urinary catheter, initial encounter (principal); G82.50 Quadriplegia, unspecified; L89.154 Pressure ulcer of sacral region, stage 4; N30.01 Acute cystitis with hematuria; G89.4 Chronic pain syndrome; B96.20 Unspecified Escherichia coli [E. coli] as the cause of diseases classified elsewhere; E78.5 Hyperlipidemia, unspecified; R73.03 Prediabetes; K21.9 Gastro-esophageal reflux disease without esophagitis; Z87.440 Personal history of urinary (tract) infections; Z88.0 Allergy status to penicillin; Z88.8 Allergy status to other drugs, medicaments and biological substances; Z79.01 Long term (current) use of anticoagulants; Z82.49 Family history of ischemic heart disease and other diseases of the circulatory system; Z88.1 Allergy status to other antibiotic agents
CPT/HCPCS: 36415; 71045; 76775; 80048; 80053; 80061; 81001; 82306; 82607; 83036; 83605; 83690; 83735; 84443; 84484; 85007; 85025; 85027; 85610; 85652; 85730; 86141; 87040; 87081; 87086; 87088; 87186; 87205; 93925; G0378; J0692; J0696; J7060

== ENCOUNTER 2024-05-13 14:17 | Emergency (ER) | payer MEDICARE, MEDICAID ==
[~2024-05-13] VITALS: Ht 172.7 cm; Wt 90.0 kg
[~2024-05-13 14:17] MED LIST changes: -TAMS0.4C36 PO; +TAMS0.4C39 PO
--- NOTE | 2024-05-13 14:31 | ED.PDOC ---
General HPI Comments 53 year old male ANKITA presents to the ED with chief complaint of cloudy urine. Patient reports that he has been experiencing cloudy, foul smelling urine with associated chills for the past week. Patient relays that he currently has a Cervantes catheter in place and he was able to reach his urologist 2 days ago who advised him to follow up with the ED for further evaluation of his urine. Patient denies any dysuria, hematuria, fever, dizziness, headache, or abdominal pain. Time Seen by MD: 14:28 Primary Care Provider: UNKNOWN Reviewed notes: Nurses Notes, Lead Caster Helper Notes, Medications, Allergies Allergies: Coded Allergies: Vancomycin (Verified Allergy, Mild, ITCHING, 01/07/22) Penicillins (Verified Allergy, Unknown, 09/11/22) Interview Date: 09-11-2022 Per patient's resident care aide Sandy: -Patient developed itching, rash entire body about two years ago in hospital and was received Benadryl immediately at that time. Home Meds Active Scripts Ciprofloxacin Hcl (Cipro) 500 Mg Tab, 1 TAB PO BID, #20 TAB Prov:NAM PEREZ MD 05/13/24 Sulfamethoxazole W/Trimethopri (Bactrim Ds Tablet) 1 Tab Tb, 1 TAB PO BID, #20 TAB Prov:BAHMAN CHAMPION MD 02/19/23 Ciprofloxacin Hcl (Cipro) 500 Mg Tab, 1 TAB PO BID for 7 Days, #14 TAB Prov:JAIRON GUY MD 09/06/22 Reported Medications Tamsulosin Hcl (Tamsulosin Hcl) 0.4 Mg Cap, 1 CAP PO DAILY, #90 CAP 1 Refill 02/17/23 Atorvastatin Calcium (ATORVASTATIN CALCIUM) 20 Mg Tab, 1 TAB PO DAILY 09/05/22 Methocarbamol (Methocarbamol) 750 Mg Tab, 750 MG PO BID, TAB 01/07/22 Apixaban Base (ELIQUIS) 5 Mg Tab, 5 MG PO BID, TAB 01/07/22 Information Source: Patient, Emergency Med Personnel Mode of Arrival: EMS Severity: Moderate Timing: Weeks Duration: Since onset Prehospital treatment: None Onset: Spontaneous Symptoms: Other (Cloudy, foul smelling urine) History of: Chronic indwelling cervantes Past Medical History PAST MEDICAL HISTORY: GERD, High Lipids, UTI'S Past Medical History (Other): Quadriplegic Surgical History (Other): Rods placed in neck, colostomy, tracheostomy Family History Family History: Reviewed,noncontributory to illness, No family hx of Cancer, No family hx of DM, No family hx of Heart evelio Social History Smoker: Non-Smoker Alcohol: Denies ETOH Use Drugs: Denies Drug Use Lives In: Home Constitutional: reports: chills; denies: diaphoresis, fatigue, fever, malaise, sweats, weakness, others EENTM: denies: blurred vision, double vision, ear bleeding, ear discharge, ear drainage, ear pain, ear ringing, eye pain, eye redness, hearing loss, mouth pain, mouth swelling, nasal discharge, nose bleeding, nose congestion, nose pain, photophobia, tearing, throat pain, throat swelling, voice changes, others Respiratory: denies: cough, hemoptysis, orthopnea, SOB at rest, shortness of breath, SOB with excertion, stridor, wheezing, others Cardiovascular: denies: chest pain, dizzy spells, diaphoresis, Dyspnea on exertion, edema, irregular heart beat, left arm pain, lightheadedness, palpitations, PND, syncope, others Gastrointestinal: denies: abdomen distended, abdominal pain, blood streaked bowels, constipated, diarrhea, dysphagia, difficulty swallowing, hematemesis, melena, nausea, poor appetite, poor fluid intake, rectal bleeding, rectal pain, vomiting, others Genitourinary: reports: others (Cloudy, foul smelling urine); denies: burning, dysuria, flank pain, frequency, hematuria, incontinence, penile discharge, penile sore, pain, testicle pain, testicle swelling, urgency Neurological: denies: dizziness, fainting, headache, left sided numbness, left sided weakness, numbness, paresthesia, pre-existing deficit, right sided numbness, right sided weakness, seizure, speech problems, tingling, tremors, weakness, others Musculoskeletal: denies: back pain, gout, joint pain, joint swelling, muscle pain, muscle stiffness, neck pain, others Integumetry: denies: bruises, change in color, change in hair/nails, dryness, laceration, lesions, lumps, rash, wounds, others Allergic/Immunocompromised: denies: Difficulty Healing, Frequent Infections, Hives, Itching, others Hematologic/Lymphatic: denies: anemia, blood clots, easy bleeding, easy bruising, swollen glands, others Endocrine: denies: excessive hunger, excessive sweating, excessive thirst, excessive urination, flushing, intolerance to cold, intolerance to heat, unexplained weight gain, unexplained weight loss, others Psychiatric: denies: anxiety, bipolar disorder, depression, hopeless, panic disorder, schizophrenia, sleepless, suicidal, others All Other Systems: Reviewed and Negative Physical Exam General Appearance: Moderate Distress HEENT: Normal ENT Inspection, Pharynx Normal, TMs Normal Neck: Full Range of Motion, Non-Tender, Normal, Normal Inspection Respiratory: Chest Non-Tender, Lungs Clear, No Accessory Muscle Use, No Respiratory Distress, Normal Breath Sounds Cardiovascular: No Edema, No JVD, No Murmur, No Gallop, Normal Peripheral Pulses, Regular Rate/Rhythm Breast Exam: Deferred Gastrointestinal: No Organomegaly, Non Tender, No Pulsatile Mass, Normal Bowel Sounds, Soft Genitalia: Deferred Pelvic: Deferred Rectal: Deferred Extremities: No calf tenderness, Normal capillary refill, No pedal edema Musculoskeletal : Apperance: Normal Neurologic: Alert, Motor Weakness, No Sensory Deficits, Other (quad) Cerebellar Function: Unable to Test Reflexes: Normal Skin: Dry, Normal Color, Warm Lymphatic: No Adenopathy Was a procedure done? Was a procedure done?: No Differential Diagnosis Kidney stone (Female): N/A Urinary Problem (Male): UTI X-Ray, Labs, Meds, VS Vital Signs Date Time Temp Pulse Resp B/P (MAP) Pulse Ox O2 Delivery O2 Flow Rate FiO2 05/13/24 14:20 97.8 65 16 135/78 (97) 98 Lab Test 05/13/24 17:01 05/13/24 15:08 Range/Units Urine Color Light-brown Yellow Urine Clarity Ex.turbid Clear Urine pH 7.5 5.0-9.0 Urine Specific [place] 1.018 1.001-1.035 Urine Protein 2+ H Negative Urine Ketones Trace Negative Urine Blood 3+ H Negative /uL Urine Nitrite Negative Negative Urine Bilirubin Negative Negative Urine Urobilinogen 4 H Negative mg/dL Urine Leukocyte Esterase 3+ Negative /uL Urine RBC 18 0 - 3 /hpf Urine WBC 50 0 - 3 /hpf Urine WBC Clumps Present None Seen /hpf Urine Squamous Epithelial Cells None seen <5 /hpf Urine Bacteria Many H None Seen /hpf Urine Glucose Normal Normal mg/dL White Blood Count 5.6 4.4-10.8 10^3/uL Red Blood Count 5.79 4.5-5.90 10^6/uL Hemoglobin 15.0 13.5-17.5 g/dL Hematocrit 47.2 41.0-53.0 % Mean Corpuscular Volume 81.5 80.0-100.0 fL Mean Corpuscular Hemoglobin 26.0 L 28.0-32.0 pg Mean Corpuscular Hemoglobin Concent 31.9 L 32.0-36.0 g/dL Red Cell Distribution Width 19.4 H 11.8-14.3 % Platelet Count 178 140-450 10^3/uL Mean Platelet Volume 7.3 6.9-10.8 fL Neutrophils (%) (Auto) 66.7 37.0-80.0 % Lymphocytes (%) (Auto) 24.7 10.0-50.0 % Monocytes (%) (Auto) 6.0 0.0-12.0 % Eosinophils (%) (Auto) 2.2 0.0-7.0 % Basophils (%) (Auto) 0.4 0.0-2.0 % Neutrophils # (Auto) 3.7 1.6-8.6 10 ^3/uL Lymphocytes # (Auto) 1.4 0.4-5.4 10 ^3/uL Monocytes # (Auto) 0.3 0-1.3 10 ^3/uL Eosinophils # (Auto) 0.1 0-0.8 10 ^3/uL Basophils # (Auto) 0 0-0.2 10 ^3/uL Nucleated Red Blood Cells 0.1 % Sodium Level 138 136-145 mmol/L Potassium Level 3.8 3.5-5.1 mmol/L Chloride Level 105 98-107 mmol/L Carbon Dioxide Level 23 20-31 mmol/L Anion Gap 10 5-15 Blood Urea Nitrogen 11 9-23 mg/dL Creatinine 0.74 0.700-1.30 mg/dL Glomerular Filtration Rate Calc 108 >90 mL/min BUN/Creatinine Ratio 14.9 10.0-20.0 Serum Glucose 211 H 74-106 mg/dL Calcium Level 9.9 8.7-10.4 mg/dL The patient's CBC is within normal limits The chemistry panel is within normal limits The urine test is positive for UTI At this time, the patient was given Cipro here in the emergency department's The patient was given a prescription of Cipro and will return to the emergency department's the condition worsens Time of 1ST Reevaluation: 18:36 Reevaluation 1ST: Unchanged Patient Education/Counseling: Diagnosis, Treatment, Prognosis, Need For Follow Up Family Education/Counseling: No Family Present Departure 1 Departure Time of Disposition: 18:36 Impression: Primary Impression: UTI (urinary tract infection) Qualified Codes: N30.01 - Acute cystitis with hematuria Disposition: HOME / SELF CARE / HOMELESS Condition: Fair e-Prescriptions Ciprofloxacin Hcl (Cipro) 500 Mg Tab 1 TAB PO BID, #20 TAB Prov: NAM PEREZ MD 05/13/24 Discharged With: Self Critical Care Note Critical Care Time?: No Stability Stability form required: No Heart Score Heart Score: Heart Score Response (Comments) Value History N/A 0 EKG N/A 0 Age N/A 0 Risk Factors N/A 0 Troponin N/A 0 Total 0 I personally scribed for NAM PEREZ MD ([email or web address]) on 05/13/24 at 14:31. Electronically submitted by Chris Ortega ([email or web address]). NAM PEREZ MD May 13, 2024 14:31
[2024-05-13 15:37] LABS: Basophils # (auto) 0 10 ^3/uL (0-0.2); Basophils % (auto) 0.4 % (0.0-2.0); Eosinophils # (auto) 0.1 10 ^3/uL (0-0.8); Eosinophils % (auto) 2.2 % (0.0-7.0); Hematocrit 47.2 % (41.0-53.0); Lymphocytes # (auto) 1.4 10 ^3/uL (0.4-5.4); Lymphocytes % (auto) 24.7 % (10.0-50.0); Mean Corpuscular Hgb Conc. 31.9 g/dL (32.0-36.0); Mean Corpuscular Volume 81.5 fL (80.0-100.0); Monocytes # (auto) 0.3 10 ^3/uL (0-1.3); Neutrophils # (auto) 3.7 10 ^3/uL (1.6-8.6); Neutrophils % (auto) 66.7 % (37.0-80.0); Nucleated Red Blood Cells % 0.1 %; Platelet Count (auto) 178 10^3/uL (140-450); Red Blood Cells 5.79 10^6/uL (4.5-5.90); Red Cell Distribution Width 19.4 % (11.8-14.3); White Blood Cell 5.6 10^3/uL (4.4-10.8)
[2024-05-13 15:52] LABS: Chloride 105 mmol/L (98-107); Potassium 3.8 mmol/L (3.5-5.1); Sodium 138 mmol/L (136-145)
[2024-05-13 15:53] LABS: Anion Gap 10 (5-15); Carbon Dioxide 23 mmol/L (20-31)
[2024-05-13 15:54] LABS: Calcium 9.9 mg/dL (8.7-10.4)
[2024-05-13 15:59] LABS: BUN/Creatinine Ratio 14.9 (10.0-20.0); Blood Urea Nitrogen 11 mg/dL (9-23)
[2024-05-13 16:00] LABS: Glucose 211 mg/dL (74-106)
[2024-05-13 17:20] LABS: Urine Bacteria MANY /hpf (None Seen); Urine Blood 3+ /uL (Negative); Urine Clarity Ex.Turbid (Clear); Urine Color Light-Brown (Yellow); Urine Protein, UAD 2+ (Negative); Urine Specific Gravity 1.018 (1.001-1.035); Urine Urobilinogen 4 mg/dL (Negative); Urine WBC 50 /hpf (0 - 3); Urine WBC Clumps PRESENT /hpf (None Seen); Urine pH 7.5 (5.0-9.0)
[2024-05-13] MEDS ORDERED: CIPR-173 PO (17:34)
[2024-05-13] MEDS: CIPROFLOXACIN HCL 500 MG TAB PO ONE (21:37)
[2024-05-13 21:44] VITALS: PULSE 62; RESP 16; O2SAT 99
[2024-05-14 07:30] VITALS: PULSE 62; RESP 16; O2SAT 99
[2024-05-14] MEDS: METHOCARBAMOL 500 MG TAB PO ONE (09:35)
[2024-05-14] MEDS: CIPROFLOXACIN HCL 500 MG TAB PO ONE (09:35)
[2024-05-14] MEDS: DOCUSATE SOD 100 MG CAP PO ONE (09:35)
[2024-05-14] MEDS: APIXABAN 5 MG TAB PO SCH (09:36)
[2024-05-14 13:05] VITALS: BP 127/87; PULSE 66; RESP 16; TEMP 98; O2SAT 99
== END 2024-05-14 12:43 | disposition home or self-care (01) ==
LOC: ER 14:17 → EDBD 14:17 → ER 05-14 12:43
DX: N39.0 Urinary tract infection, site not specified (principal); G82.50 Quadriplegia, unspecified; K21.9 Gastro-esophageal reflux disease without esophagitis; Z79.899 Other long term (current) drug therapy; Z87.440 Personal history of urinary (tract) infections; Z88.0 Allergy status to penicillin; Z88.1 Allergy status to other antibiotic agents; Z88.8 Allergy status to other drugs, medicaments and biological substances
CPT/HCPCS: 36415; 80048; 81001; 85025

== ENCOUNTER 2024-07-04 16:38 | Inpatient (IN) | payer MEDICARE, MEDICAID ==
[~2024-07-04] VITALS: Ht 175.3 cm; Wt 99.8 kg
[2024-07-04] MEDS: SODIUM CHLORIDE 0.9% 1,000 ML IV ONE (04:20)
--- NOTE | 2024-07-04 18:20 | ECG ---
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
[2024-07-04 18:45] VITALS: PULSE 82; RESP 16; O2SAT 95
[2024-07-04] MEDS: ONDANSETRON HCL 4 MG/2 ML VIAL IV ONE (18:45)
[2024-07-04 19:23] LABS: Basophils # (auto) 0 10 ^3/uL (0-0.2); Basophils % (auto) 0.1 % (0.0-2.0); Eosinophils # (auto) 0 10 ^3/uL (0-0.8); Eosinophils % (auto) 0.1 % (0.0-7.0); Hematocrit 47.3 % (41.0-53.0); Hemoglobin 15.2 g/dL (13.5-17.5); Lymphocytes # (auto) 0.6 10 ^3/uL (0.4-5.4); Mean Corpuscular Hemoglobin 25.6 pg (28.0-32.0); Mean Corpuscular Hgb Conc. 32.1 g/dL (32.0-36.0); Mean Corpuscular Volume 79.7 fL (80.0-100.0); Monocytes # (auto) 0.5 10 ^3/uL (0-1.3); Neutrophils # (auto) 6.8 10 ^3/uL (1.6-8.6); Neutrophils % (auto) 85.8 % (37.0-80.0); Nucleated Red Blood Cells % 0.1 %; Platelet Count (auto) 125 10^3/uL (140-450); Red Blood Cells 5.93 10^6/uL (4.5-5.90); Red Cell Distribution Width 19.1 % (11.8-14.3); White Blood Cell 7.9 10^3/uL (4.4-10.8)
[2024-07-04 19:43] LABS: Alanine Aminotransferase 24 U/L (7-40); Albumin 3.7 g/dL (3.2-4.8); Alkaline Phosphatase 102 U/L (46-116); Anion Gap 17 (5-15); Aspartate Aminotransferase 27 U/L (13-40); BUN/Creatinine Ratio 18.9 (10.0-20.0); Calcium 9.1 mg/dL (8.7-10.4)
[2024-07-04 19:44] LABS: Bilirubin, Total 0.4 mg/dL (0.2-1.0); Total Protein 6.7 g/dL (5.7-8.2)
[2024-07-04 19:50] LABS: Blood Urea Nitrogen 32 mg/dL (9-23); Carbon Dioxide 17 mmol/L (20-31); Chloride 92 mmol/L (98-107); Sodium 126 mmol/L (136-145)
[2024-07-04 19:53] LABS: Glucose 783 mg/dL (74-106)
[2024-07-04 20:00] VITALS: PULSE 75; RESP 17; O2SAT 96
[2024-07-04 20:26] LABS: COVID19 ANTIGEN SOFIA FIA NEGATIVE (NEGATIVE)
[2024-07-04 20:35] LABS: Rapid Influenza A Negative (Negative)
[2024-07-04 20:39] LABS: Rapid Influenza B Positive (Negative)
[2024-07-04] MEDS: INSULIN LISPRO (HUMAN) 100 UNITS/ML ML SC ONE (20:48)
--- NOTE | 2024-07-04 21:49 | ED.PDOC ---
GI ASSESSMENT HPI Comments This patient is a pleasant 54-year-old quadriplegic male who was brought in by his caregiver via private EMS due to complaints of hemoptysis events with cough and congestion for the past five days. Caregiver was not at bedside at time of evaluation. Patient states he has had cough and congestion with generalized body aches and ill feeling for the past several days. Patient states intermittent nausea. Patient was hypotensive on arrival. Chief Complaint: Flu like Time Seen by MD: 17:04 Primary Care Provider: ? Reviewed Notes: Nurses Notes Allergies: Coded Allergies: Vancomycin (Verified Allergy, Mild, ITCHING, 01/07/22) Penicillins (Verified Allergy, Unknown, 09/11/22) Interview Date: 09-11-2022 Per patient's care transition mgr Sandy: -Patient developed itching, rash entire body about two years ago in hospital and was received Benadryl immediately at that time. Home Meds Active Scripts Ciprofloxacin Hcl (Cipro) 500 Mg Tab, 1 TAB PO BID, #20 TAB Prov:NAM PEREZ MD 05/13/24 Sulfamethoxazole W/Trimethopri (Bactrim Ds Tablet) 1 Tab Tb, 1 TAB PO BID, #20 TAB Prov:BAHMAN CHAMPION MD 02/19/23 Ciprofloxacin Hcl (Cipro) 500 Mg Tab, 1 TAB PO BID for 7 Days, #14 TAB Prov:JAIRON GUY MD 09/06/22 Reported Medications Tamsulosin Hcl (Tamsulosin Hcl) 0.4 Mg Cap, 1 CAP PO DAILY, #90 CAP 1 Refill 02/17/23 Atorvastatin Calcium (ATORVASTATIN CALCIUM) 20 Mg Tab, 1 TAB PO DAILY 09/05/22 Methocarbamol (Methocarbamol) 750 Mg Tab, 750 MG PO BID, TAB 01/07/22 Apixaban Base (ELIQUIS) 5 Mg Tab, 5 MG PO BID, TAB 01/07/22 Information Source: Patient Mode of Arrival: EMS Timing: Days Duration: Since onset Prehospital treatment: None Quality: None Vomitus: Bilious, Food Particles, Soft, Watery, Bloody Severity: Moderate Recent: None Recent Hx of: Diabetes Associated sign and symptoms: Nausea, Vomiting Past Medical History PAST MEDICAL HISTORY: GERD, High Lipids, UTI'S Past Medical History (Other): Patient is a quadriplegic Surgical History: Denies all surgeries Family History Family History: Reviewed,noncontributory to illness, No family hx of Cancer, No family hx of DM, No family hx of Heart evelio Social History Smoker: Non-Smoker Alcohol: Denies ETOH Use Drugs: Denies Drug Use Lives In: Home Constitutional: reports: weakness; denies: chills, diaphoresis, fatigue, fever, malaise, sweats, others EENTM: denies: blurred vision, double vision, ear bleeding, ear discharge, ear drainage, ear pain, ear ringing, eye pain, eye redness, hearing loss, mouth pain, mouth swelling, nasal discharge, nose bleeding, nose congestion, nose pain, photophobia, tearing, throat pain, throat swelling, voice changes, others Respiratory: reports: cough; denies: hemoptysis, orthopnea, SOB at rest, shortness of breath, SOB with excertion, stridor, wheezing, others Cardiovascular: denies: chest pain, dizzy spells, diaphoresis, Dyspnea on exertion, edema, irregular heart beat, left arm pain, lightheadedness, palpitations, PND, syncope, others Gastrointestinal: reports: nausea, vomiting; denies: abdomen distended, abdominal pain, blood streaked bowels, constipated, diarrhea, dysphagia, difficulty swallowing, hematemesis, melena, poor appetite, poor fluid intake, rectal bleeding, rectal pain, others Genitourinary: denies: burning, dysuria, flank pain, frequency, hematuria, incontinence, penile discharge, penile sore, pain, testicle pain, testicle swelling, urgency, others Neurological: denies: dizziness, fainting, headache, left sided numbness, left sided weakness, numbness, paresthesia, pre-existing deficit, right sided numbness, right sided weakness, seizure, speech problems, tingling, tremors, weakness, others Musculoskeletal: denies: back pain, gout, joint pain, joint swelling, muscle pain, muscle stiffness, neck pain, others Integumetry: denies: bruises, change in color, change in hair/nails, dryness, laceration, lesions, lumps, rash, wounds, others Allergic/Immunocompromised: denies: Difficulty Healing, Frequent Infections, Hives, Itching, others Hematologic/Lymphatic: denies: anemia, blood clots, easy bleeding, easy bruising, swollen glands, others Endocrine: denies: excessive hunger, excessive sweating, excessive thirst, excessive urination, flushing, intolerance to cold, intolerance to heat, unexplained weight gain, unexplained weight loss, others Psychiatric: denies: anxiety, bipolar disorder, depression, hopeless, panic disorder, schizophrenia, sleepless, suicidal, others Physical Exam General Appearance: Moderate Distress (Patient appears to be in [id number] distress at time of evaluation.), Normal HEENT: Normal ENT Inspection, Pharynx Normal, TMs Normal Neck: Full Range of Motion, Non-Tender, Normal, Normal Inspection Respiratory: Chest Non-Tender, Lungs Clear, No Accessory Muscle Use, No Respiratory Distress, Normal Breath Sounds Cardiovascular: No Edema, No JVD, No Murmur, No Gallop, Normal Peripheral Pulses, Regular Rate/Rhythm Breast Exam: Deferred Gastrointestinal: none, Normal Bowel Sounds Genitalia: Deferred Pelvic: Deferred Rectal: Deferred Extremities: NOT DONE Neurologic: Alert, label paster II-XII nml as Tested, Normal Affect, Normal Mood Cerebellar Function: NOT DONE Reflexes: NOT DONE Skin: Dry, Normal Color, Warm Lymphatic: No Adenopathy Was a procedure done? Was a procedure done?: No GI differential Dx Differential Diagnosis: Other (Pneumonia, viral upper respiratory illness, hematemesis, gastroenteritis, viral illness, sepsis, electrolyte abnormality, hyperglycemia, DKA) X-Ray, Labs, Meds, VS Vital Signs Date Time Temp Pulse Resp B/P (MAP) Pulse Ox O2 Delivery O2 Flow Rate FiO2 07/04/24 18:45 85 16 105/68 (80) 95 07/04/24 18:45 82 16 95 Room Air* 0 21 07/04/24 17:17 80 07/04/24 17:12 99.5 80 20 89/55 (66) 98 07/04/24 17:12 20 98 Room Air Lab Test 07/04/24 21:26 07/04/24 20:50 07/04/24 19:59 07/04/24 19:02 Range/Units Urine Color Pending Urine Clarity Pending Urine pH Pending Urine Specific [place] Pending Urine Protein Pending Urine Ketones Pending Urine Blood Pending Urine Nitrite Pending Urine Bilirubin Pending Urine Urobilinogen Pending Urine Leukocyte Esterase Pending Urine RBC Pending Urine Microscopic WBC Pending Urine Squamous Epithelial Cells Pending Urine Bacteria Pending Urine Glucose Pending POC Glucose > 600 *H 70-106 mg/dl Influenza Type A Antigen Negative Negative Influenza Type B Antigen Positive Negative SARS-CoV-2 Antigen (Rapid) Negative NEGATIVE White Blood Count 7.9 4.4-10.8 10^3/uL Red Blood Count 5.93 H 4.5-5.90 10^6/uL Hemoglobin 15.2 13.5-17.5 g/dL Hematocrit 47.3 41.0-53.0 % Mean Corpuscular Volume 79.7 L 80.0-100.0 fL Mean Corpuscular Hemoglobin 25.6 L 28.0-32.0 pg Mean Corpuscular Hemoglobin Concent 32.1 32.0-36.0 g/dL Red Cell Distribution Width 19.1 H 11.8-14.3 % Platelet Count 125 L 140-450 10^3/uL Mean Platelet Volume 8.8 6.9-10.8 fL Neutrophils (%) (Auto) 85.8 H 37.0-80.0 % Lymphocytes (%) (Auto) 8.0 L 10.0-50.0 % Monocytes (%) (Auto) 6.0 0.0-12.0 % Eosinophils (%) (Auto) 0.1 0.0-7.0 % Basophils (%) (Auto) 0.1 0.0-2.0 % Neutrophils # (Auto) 6.8 1.6-8.6 10 ^3/uL Lymphocytes # (Auto) 0.6 0.4-5.4 10 ^3/uL Monocytes # (Auto) 0.5 0-1.3 10 ^3/uL Eosinophils # (Auto) 0 0-0.8 10 ^3/uL Basophils # (Auto) 0 0-0.2 10 ^3/uL Nucleated Red Blood Cells 0.1 % Sodium Level 126 L 136-145 mmol/L Potassium Level 6.0 *H 3.5-5.1 mmol/L Chloride Level 92 L 98-107 mmol/L Carbon Dioxide Level 17 L 20-31 mmol/L Anion Gap 17 H 5-15 Blood Urea Nitrogen 32 H 9-23 mg/dL Creatinine 1.69 H 0.700-1.30 mg/dL Glomerular Filtration Rate Calc 48 >90 mL/min BUN/Creatinine Ratio 18.9 10.0-20.0 Serum Glucose 783 *H 74-106 mg/dL Lactic Acid Level 2.0 0.4-2.0 mmol/L Calcium Level 9.1 8.7-10.4 mg/dL Total Bilirubin 0.4 0.2-1.0 mg/dL Aspartate Amino Transferase (AST) 27 13-40 U/L Alanine Aminotransferase (ALT) 24 7-40 U/L Alkaline Phosphatase 102 46-116 U/L B-Type Natriuretic Peptide 116.08 0-100 pg/mL Total Protein 6.7 5.7-8.2 g/dL Albumin 3.7 3.2-4.8 g/dL Current Medications Medications (Trade) Dose Ordered Sig/Charbel Route Start Time Stop Time Status Last Admin Insulin Human Lispro (HumaLOG) 18 units ONCE ONCE SC 07/04/24 20:15 07/04/24 20:16 DC 07/04/24 20:48 X-Ray, Labs, Meds, VS Comment All studies performed the ED were evaluated by me personally. Swabs studies confirmed a influenza B diagnosis. More concerning were patient's laboratories revealed a hyponatremia, hyperkalemia six, acute on chronic renal injury and signs of DKA with a blood sugar of 73 and a anion gap of 17. Patient started on DKA protocols and will be transferred to ICU once stabilized. Patient was a hard stick and therefore, central line orders have been placed and will be performed by Dr. Ramirez. Time of 1ST Reevaluation: 21:43 Reevaluation 1ST: Unchanged Consultation: PCP Patient Education/Counseling: Diagnosis, Treatment Family Education/Counseling: Diagnosis, Treatment Departure 1 Departure Time of Disposition: 21:48 Impression: Primary Impression: DKA (diabetic ketoacidosis) Additional Impressions: Hyponatremia Hyperkalemia [id number] kidney injury Influenza B Disposition: ADMITTED INPATIENT Condition: Fair Discharged With: Self Critical Care Note Critical Care Time?: Yes (45 min-critical care time only) Critical care comment: Due to the high probability of a clinically significant and possibly life- threatening deterioration, this patient required my highest level of preparedness to intervene emergently and therefore, I personally provided 45 minutes of critical care time exclusive of time spent on separate billable pro cedures. This critical care time includes, but is not limited to, obtaining additional history, re-examination of the patient, re-examination of pulse oximetry as well as ordering and reviewing a studies. Arranging urgent treatment with the development of a management plan, evaluation of the patient's response to treatment and frequent reassessments as well as discussions with the other providers. Stability Stability form required: No Heart Score Heart Score: Heart Score Response (Comments) Value History Slightly Suspicious 0 EKG Normal 0 Age 45-64 1 Risk Factors 1 or 2 risk factors 1 Troponin Normal limit 0 Total 2 LOAN SOTELO PAC Jul 04, 2024 21:49
[2024-07-04 21:50] LABS: Urine Bacteria FEW /hpf (None Seen); Urine Blood Negative /uL (Negative); Urine Budding Yeast OCCASIONAL /hpf (None Seen); Urine Clarity Clear (Clear); Urine Color Light-Yellow (Yellow); Urine Mucus FEW (None Seen); Urine Protein, UAD Negative (Negative); Urine Specific Gravity 1.025 (1.001-1.035); Urine Squamous Epithelial Cell None Seen /hpf (<5); Urine Urobilinogen Normal (Negative); Urine WBC 3 /HPF (0-3); Urine pH 5.5 (5.0-9.0)
[2024-07-04 21:52] VITALS: O2SAT 96
[2024-07-04] MEDS ORDERED: DEXTROSE (50%) 50ML SYRG IV PRN (22:00)
[2024-07-04 22:28] LABS: Base Excess -6.1 mmol/L (-2.0-3.0)
[2024-07-04 22:57] LABS: Magnesium 2.5 mg/dL (1.6-2.6)
[2024-07-04 22:58] LABS: Phosphorus 3.5 mg/dL (2.4-5.1)
--- NOTE | 2024-07-04 23:09 | DVH ---
CHEST RADIOGRAPH Indication: Shortness of breath Technique: Single frontal view of the chest was obtained Comparison: XY CHEST XRAY 1 VIEW on DOS: 04/26/23, XY CHEST PORTABLE on DOS: 09/05/22, CXRP on DOS: FINDINGS: Lines and Tubes: Postop changes throughout the cervical spine with pedicle screws and rods. Lungs: Airspace disease scattered throughout the right chest Pleura: No effusion. No pneumothorax. Cardiomediastinal contours: Unremarkable Bones: No acute osseous abnormality. IMPRESSION: 1. Airspace disease scattered throughout the right chest
[2024-07-04] MEDS: SODIUM ZIRCONIUM CYCL 10 GM PAK PO ONE (23:29)
[2024-07-04] MEDS: INSULIN LANTUS (GLARGINE) 1 /0.01ml (100units/ml) SC ONE (23:30)
--- NOTE | 2024-07-04 23:58 | DVHHP2 ---
History of Present Illness Reason for Visit: Diabetic ketoacidosis History of Present Illness The patient is a 54-year-old male quadriplegic with past medical history of GERD, UTIs, hyperlipidemia, and hypertension who presented to [facility] ED with complaint of generalized weakness. Patient reports symptoms progressively get worse with hemoptysis, chest congestion, persistent of cough, increased generalized weakness, getting worse that prompted this visit. Patient was seen and evaluated in the ED, laboratory data shows WBC 7.9, platelets 125, sodium 126, potassium 6.0, BUN 32, creatinine 1.69, GFR 48, glucose 783, anion gap 17, acetone > 4.5, BNP 116.08, blood pressure 105/68, heart rate 75, temperature 99.5 F, O2 saturation 96% on oxygen. Patient was started on IV insulin drip, please see medication orders section in the computer. On my assessment, patient remains altered, no diaphoresis, currently on oxygen, no diarrhea, no nausea, no vomiting, no fever, no chills. Patient was admitted for further evaluation and medical management. Past Medical History GERD, High Lipids, UTI'S, Quadriplegic Past Surgical History Denies all surgeries Family History Reviewed, noncontributory to the management of this case. Past Social History The patient lives at home, denies smoking, alcohol or illicit drugs abuse. Review of Systems Constitutional: Yes: Weakness; No: Fever, Chills, Sweats, Malaise, Other Eyes: No: Pain, Vision change, Conjunctivae inflammation, Eyelid inflammation, Other, Redness ENT: No: Ear pain, Ear discharge, Nose pain, Nose discharge, Nose congestion, Mouth pain, Mouth swelling, Throat pain, Throat swelling, Other Respiratory: Cough, Shortness of breath; No: Dry, SOB with excertion, Wheezing, Hemoptysis, Pleuritic Pain, Sputum, Wheezing, Other Cardiovascular: No: Chest Pain, Palpitations, Orthopnea, Paroxysmal Noc. Dys pnea, Edema, Lt Headedness, Other Gastrointestinal: Nausea, Vomiting; No: Abdominal Pain, Diarrhea, Constipation, Melena, Hematochezia, Other Genitourinary: No Dysuria, No Frequency, No Incontinence, No Hematuria, No Retention, No Other Musculoskeletal: No: other, neck pain, shoulder pain, arm pain, back pain, hand pain, leg pain, foot pain Skin: No: Rash, Lesions, Jaundice, Bruising, Other Neurological: No: Weakness, Numbness, Incoordination, Change in speech, Confusion, Seizures, Other Allergies: Coded Allergies: Vancomycin (Verified Allergy, Mild, ITCHING, 01/07/22) Penicillins (Verified Allergy, Unknown, 09/11/22) Interview Date: 09-11-2022 Per patient's career education teacher Sandy: -Patient developed itching, rash entire body about two years ago in hospital and was received Benadryl immediately at that time. Medications Current Medications Medications Dose Ordered Sig/Charbel Route Start Time Stop Time Status Last Admin Dose Admin Sodium Chloride 1,000 ml @ 250 mls/hr Q4H IV 07/05/24 02:00 07/05/24 03:59 Insulin Human (Reg)/Sodium Chloride 100 ml @ 0.5 mls/hr Q24H IV 07/04/24 22:00 Dextrose 50 ml UD PRN IV 07/04/24 22:00 Insulin Glargine 15 units DAILY SC 07/05/24 10:00 Exam Vital Signs Vital Signs Date Time Temp Pulse Resp B/P (MAP) Pulse Ox O2 Delivery O2 Flow Rate FiO2 07/04/24 21:52 96 Nasal Cannula* 2 28 07/04/24 20:00 75 17 07/04/24 18:45 105/68 (80) 07/04/24 17:12 99.5 General Appearance: Alert, Oriented X3, Cooperative, No acute distress HEENT: Atraumatic, PERRLA, EOMI, Mucous membr. moist/pink Respiratory: Clear to auscultation, Normal air movement Cardiovascular: Regular rate, Normal S1, Normal S2, No murmurs Abdominal: Normal bowel sounds, Soft, No tenderness, No hepatospenomegaly, No masses Extremities: No clubbing, No cyanosis, No edema, Normal pulses, No tenderness/swelling Skin: No rashes, No breakdown, No significant lesion Neuro: Normal speech, Normal tone, Sensation intact, Cranial nerves 3-12 NL, Reflexes 2+, Other (Quadriplegic) Psych/Mental Status: Mental status NL, Mood NL Labs/Xrays Labs Test 07/04/24 23:36 07/04/24 22:23 07/04/24 22:05 07/04/24 21:26 Range/Units POC Glucose > 600 *H 70-106 mg/dl Blood Gas Specimen Type Arterial Blood Gas Sample Site Left radial Blood Gas Patient Temperature 37.0 Arterial Blood Date Drawn [id number] Arterial Blood pH 7.345 L 7.350-7.450 Arterial Blood Partial Pressure CO2 35.1 35.0-48.0 mmHg Arterial Blood Partial Pressure O2 86.0 83.0-108.0 mmHg Arterial Blood HCO3 18.7 L 21.0-28.0 mmol/L Arterial Blood Oxygen Saturation 96.4 94.0-98.0 % Arterial Blood Base Excess -6.1 L -2.0-3.0 mmol/L Arterial Blood Oxyhemoglobin 94.5 94.0-98.0 % Arterial Blood Carboxyhemoglobin 1.6 H 0.5-1.5 % Arterial Blood Methemoglobin 0.4 0.0-1.5 % Yury Test Yes Blood Gas Total Hemoglobin 15.30 13.5-17.5 g/dL Blood Gas Liter Flow 2.00 Blood Gas Modality Nasal cannula FiO2 % 28.0 Serum Osmolality 330 H 278-298 mOsm/kg Phosphorus Level 3.5 2.4-5.1 mg/dL Magnesium Level 2.5 1.6-2.6 mg/dL Troponin I High Sensitivity 55 *H </=54 ng/L Beta-Hydroxybutyric Acid > 4.500 H < 0.4 mmol/L Urine Color Light-yellow Yellow Urine Clarity Clear Clear Urine pH 5.5 5.0-9.0 Urine Specific [place] 1.025 1.001-1.035 Urine Protein Negative Negative Urine Ketones 2+ H Negative Urine Blood Negative Negative /uL Urine Nitrite Negative Negative Urine Bilirubin Negative Negative Urine Urobilinogen Normal Negative mg/dL Urine Leukocyte Esterase Negative Negative /uL Urine RBC 1 0 - 3 /hpf Urine Microscopic WBC 3 0-3 /HPF Urine Squamous Epithelial Cells None seen <5 /hpf Urine Bacteria Few H None Seen /hpf Urine Mucus Few None Seen Urine Yeast (Budding) Occasional None Seen /hpf Urine Glucose 4+ H Normal mg/dL Test 07/04/24 19:59 07/04/24 19:02 Range/Units Influenza Type A Antigen Negative Negative Influenza Type B Antigen Positive Negative SARS-CoV-2 Antigen (Rapid) Negative NEGATIVE White Blood Count 7.9 4.4-10.8 10^3/uL Red Blood Count 5.93 H 4.5-5.90 10^6/uL Hemoglobin 15.2 13.5-17.5 g/dL Hematocrit 47.3 41.0-53.0 % Mean Corpuscular Volume 79.7 L 80.0-100.0 fL Mean Corpuscular Hemoglobin 25.6 L 28.0-32.0 pg Mean Corpuscular Hemoglobin Concent 32.1 32.0-36.0 g/dL Red Cell Distribution Width 19.1 H 11.8-14.3 % Platelet Count 125 L 140-450 10^3/uL Mean Platelet Volume 8.8 6.9-10.8 fL Neutrophils (%) (Auto) 85.8 H 37.0-80.0 % Lymphocytes (%) (Auto) 8.0 L 10.0-50.0 % Monocytes (%) (Auto) 6.0 0.0-12.0 % Eosinophils (%) (Auto) 0.1 0.0-7.0 % Basophils (%) (Auto) 0.1 0.0-2.0 % Neutrophils # (Auto) 6.8 1.6-8.6 10 ^3/uL Lymphocytes # (Auto) 0.6 0.4-5.4 10 ^3/uL Monocytes # (Auto) 0.5 0-1.3 10 ^3/uL Eosinophils # (Auto) 0 0-0.8 10 ^3/uL Basophils # (Auto) 0 0-0.2 10 ^3/uL Nucleated Red Blood Cells 0.1 % Sodium Level 126 L 136-145 mmol/L Potassium Level 6.0 *H 3.5-5.1 mmol/L Chloride Level 92 L 98-107 mmol/L Carbon Dioxide Level 17 L 20-31 mmol/L Anion Gap 17 H 5-15 Blood Urea Nitrogen 32 H 9-23 mg/dL Creatinine 1.69 H 0.700-1.30 mg/dL Glomerular Filtration Rate Calc 48 >90 mL/min BUN/Creatinine Ratio 18.9 10.0-20.0 Serum Glucose 783 *H 74-106 mg/dL Lactic Acid Level 2.0 0.4-2.0 mmol/L Calcium Level 9.1 8.7-10.4 mg/dL Total Bilirubin 0.4 0.2-1.0 mg/dL Aspartate Amino Transferase (AST) 27 13-40 U/L Alanine Aminotransferase (ALT) 24 7-40 U/L Alkaline Phosphatase 102 46-116 U/L B-Type Natriuretic Peptide 116.08 0-100 pg/mL Total Protein 6.7 5.7-8.2 g/dL Albumin 3.7 3.2-4.8 g/dL PATIENT: ENRIQUE LEIVA ACCT: [id number] UNIT: [id number] : 1970 LOC: ER ROOM / BED: / AGE / SEX: 54 / M ADM STATUS: REG ER SERVICE 52 ORDERING PHYSICIAN: LOAN SOTELO PAC PROCEDURE(s): CXRP - CHEST PORTABLE REASON: Shortness of breath ORDER NUMBER(s): [id number], ACCESSION NUMBER(s): [id number] CHEST RADIOGRAPH Indication: Shortness of breath Technique: Single frontal view of the chest was obtained Comparison: XY CHEST XRAY 1 VIEW on DOS: 04/26/23, XY CHEST PORTABLE on DOS: 09/05/22, CXRP on DOS: 04/05/22 FINDINGS: Lines and Tubes: Postop changes throughout the cervical spine with pedicle screws and rods. Lungs: Airspace disease scattered throughout the right chest Pleura: No effusion. No pneumothorax. Cardiomediastinal contours: Unremarkable Bones: No acute osseous abnormality. IMPRESSION: 1. Airspace disease scattered throughout the right chest Assessment/Plan Assessment/Plan DKA (diabetic ketoacidosis) Hyponatremia Hyperkalemia Crwus-ns-hdeyhjd kidney injury Influenza B Generalized weakness Plan 1. Admit to intensive care unit 2. Breathing treatment 3. Pain control management 4. IV antibiotic management 5. Management of fluids and electrolytes 6. Consultation for hospitalist 7. Diagnostic test chest x-ray 8. DVT prophylaxis on SCDs 9. Repeat labs CBC, CMP in a.m. 10. Home medication reviewed and reconciled 11. Continue with current medical management 12. Treatment plan discussed with patient and RN. Patient verbalized understanding. Plan discussed with: Patient, Other (RN) Problem List: (1) DKA (diabetic ketoacidosis) (2) Hyponatremia (3) Hyperkalemia (4) Influenza B (5) Generalized weakness (6) Mstol-ts-seabhvq kidney injury Date of Service: Jul 04, 2024 Billing Provider: KELLY HUNT DNP Common Visit Codes: [id number] INP/OBS CARE (HIGH) KELLY HUNT DNP Jul 04, 2024 23:58
[2024-07-05] VITALS (7 sets, daily range): BP systolic 97–101; BP diastolic 61–71; PULSE 67–85; RESP 10–20; TEMP 98.1–98.4; O2SAT 93–97
[2024-07-05] MEDS ORDERED: ONDANSETRON HCL 4 MG/2 ML VIAL IV PRN
[2024-07-05] MEDS ORDERED: NITROGLYCERIN 0.4 MG SL TAB SL PRN
[2024-07-05] MEDS ORDERED: MORPHINE SULFATE INJ 2 MG/ml SYRG IV PRN
[2024-07-05] MEDS: CALCIUM GLUC 1,000mg/50ml-NS 100 ML IV ONE (00:28)
[2024-07-05] MEDS: LIDOCAINE 1% HCL (LOCAL ANESTH.) INJ 20ML MDV ONE (00:38)
[2024-07-05] MEDS: CALCIUM GLUC 1,000mg/50ml-NS 50 ML IV SCH (04:29)
[2024-07-05 04:38] LABS: Basophils # (auto) 0 10 ^3/uL (0-0.2); Basophils % (auto) 0.1 % (0.0-2.0); Eosinophils # (auto) 0 10 ^3/uL (0-0.8); Monocytes # (auto) 0.6 10 ^3/uL (0-1.3); Neutrophils # (auto) 5.5 10 ^3/uL (1.6-8.6)
[2024-07-05 04:41] LABS: Hematocrit 46.3 % (41.0-53.0); Hemoglobin 15.3 g/dL (13.5-17.5); Lymphocytes # (auto) 0.7 10 ^3/uL (0.4-5.4); Lymphocytes % (auto) 9.7 % (10.0-50.0); Mean Corpuscular Hemoglobin 25.9 pg (28.0-32.0); Mean Corpuscular Hgb Conc. 33.1 g/dL (32.0-36.0); Mean Corpuscular Volume 78.4 fL (80.0-100.0); Monocytes % (auto) 9.1 % (0.0-12.0); Neutrophils % (auto) 81.1 % (37.0-80.0); Nucleated Red Blood Cells % 0.3 %; Platelet Count (auto) 112 10^3/uL (140-450); Red Cell Distribution Width 19.4 % (11.8-14.3); White Blood Cell 6.8 10^3/uL (4.4-10.8)
[2024-07-05] MEDS: INSULIN DRIP 100 UNIT/100ML 100 ML IV SCH ×3 (04:56→16:30)
[2024-07-05 05:04] LABS: Alanine Aminotransferase 23 U/L (7-40); Alkaline Phosphatase 98 U/L (46-116); Anion Gap 16 (5-15); Aspartate Aminotransferase 23 U/L (13-40); BUN/Creatinine Ratio 13.6 (10.0-20.0); Blood Urea Nitrogen 22 mg/dL (9-23); Calcium 9.9 mg/dL (8.7-10.4)
[2024-07-05 05:05] LABS: Albumin 3.9 g/dL (3.2-4.8); Bilirubin, Total 0.3 mg/dL (0.2-1.0); Total Protein 7.1 g/dL (5.7-8.2)
[2024-07-05 05:06] LABS: Carbon Dioxide 16 mmol/L (20-31); Chloride 97 mmol/L (98-107); Potassium 5.4 mmol/L (3.5-5.1); Sodium 129 mmol/L (136-145)
[2024-07-05 05:08] LABS: Glucose 679 mg/dL (74-106)
[2024-07-05] MEDS: SODIUM CHLORIDE 0.9% 1,000 ML IV SCH ×2 (05:24)
[2024-07-05] MEDS: INSULIN LANTUS (GLARGINE) 1 /0.01ml (100units/ml) SC SCH (10:04)
[2024-07-05] MEDS: APIXABAN 5 MG TAB PO SCH (10:04)
[2024-07-05] MEDS: ACCU-CHEK COMFORT CURVE STRIP VI SCH ×2 (11:57→17:59)
[2024-07-05 13:37] LABS: Urine Bacteria FEW /hpf (None Seen); Urine Blood 1+ /uL (Negative); Urine Protein, UAD 1+ (Negative); Urine Specific Gravity 1.021 (1.001-1.035); Urine Squamous Epithelial Cell None Seen /hpf (<5); Urine Urobilinogen Normal (Negative); Urine WBC 163 /HPF (0-3); Urine WBC Clumps PRESENT /hpf (None Seen); Urine pH 5.5 (5.0-9.0)
[2024-07-05 13:41] LABS: Urine Clarity Cloudy (Clear); Urine Color Yellow (Yellow)
[2024-07-05] MEDS: TAMSULOSIN HYDROCHLORIDE 0.4 MG CAP PO SCH (18:06)
--- NOTE | 2024-07-05 18:58 | DVHPN2 ---
Subjective discussed with patient and straightedge man Changes from previous H/P or p: No Changes Eyes: No Pain, No Vision change, No Conjunctivae inflammation, No Eyelid inflammation, No Other, No Redness ENT: No Ear pain, No Ear discharge, No Nose pain, No Nose discharge, No Nose congestion, No Mouth pain, No Mouth swelling, No Throat pain, No Throat swelling, No Other Cardiovascular: No Chest Pain, No Palpitations, No Orthopnea, No Paroxysmal Noc. Dyspnea, No Edema, No Lt Headedness, No Other Respiratory: Cough; No Dry; Shortness of breath; No SOB with excertion, No Wheezing, No Hemoptysis, No Pleuritic Pain, No Sputum, No Other Gastrointestinal: Nausea, Vomiting; No Abdominal Pain, No Diarrhea, No Constipation, No Melena, No Hematochezia, No Other Genitourinary: No Dysuria, No Frequency, No Incontinence, No Hematuria, No Retention, No Other Musculoskeletal: No other, No neck pain, No shoulder pain, No arm pain, No back pain, No hand pain, No leg pain, No foot pain Skin: No Rash, No Lesions, No Jaundice, No Bruising, No Other Objective Vitals Vital Signs Date Time Temp Pulse Resp B/P (MAP) Pulse Ox O2 Delivery O2 Flow Rate FiO2 07/05/24 18:01 98.0 69 16 97/61 (73) 96 98.0 07/05/24 10:23 Room Air* 0 21 General Appearance: Alert, Oriented X3 Medications Current Medications Medications Dose Ordered Sig/Charbel Route Start Time Stop Time Status Last Admin Dose Admin Dextrose 50 ml UD PRN IV 07/04/24 22:00 Insulin Glargine 15 units DAILY SC 07/05/24 10:00 07/05/24 10:04 15 UNITS Tamsulosin HCl 0.4 mg QPM PO 07/05/24 18:00 07/05/24 18:06 0.4 MG Atorvastatin Calcium 20 mg HS PO 07/05/24 22:00 Apixaban 5 mg BID PO 07/05/24 10:00 07/05/24 10:04 5 MG Sodium Chloride 1,000 ml @ 60 mls/hr [id number] IV 07/05/24 00:00 07/05/24 11:15 60 MLS/HR Acetaminophen/ Hydrocodone Bitart 1 tab Q4HP PRN PO 07/05/24 00:00 Ondansetron HCl 4 mg Q4HP PRN IV 07/05/24 00:00 Docusate Sodium 100 mg BIDPRN PRN PO 07/05/24 00:00 Acetaminophen 650 mg Q6HP PRN PO 07/05/24 00:00 Nitroglycerin 0.4 mg Q5MINP PRN SL 07/05/24 00:00 Morphine Sulfate 2 mg Q30M PRN IV 07/05/24 00:00 Diagnostic Test (Pha) 1 strip Q90MIN 07/05/24 18:00 07/05/24 17:59 1 STRIP Insulin Human (Reg)/Sodium Chloride 100 ml @ 1 mls/hr Q24H IV 07/05/24 16:45 07/05/24 16:30 12 MLS/HR Laboratory Results Laboratory Tests 07/05/24 04:00 Chemistry Test 07/04/24 19:02 07/04/24 22:05 07/05/24 04:00 Albumin 3.7 g/dL (3.2-4.8) 3.9 g/dL (3.2-4.8) Calcium Level 9.1 mg/dL (8.7-10.4) 9.9 mg/dL (8.7-10.4) Total Protein 6.7 g/dL (5.7-8.2) 7.1 g/dL (5.7-8.2) Magnesium Level 2.5 mg/dL (1.6-2.6) Phosphorus Level 3.5 mg/dL (2.4-5.1) Cardiac Markers Test 07/04/24 19:02 B-Type Natriuretic Peptide 116.08 pg/mL (0-100) LFT Test 07/04/24 19:02 07/05/24 04:00 Alanine Aminotransferase (ALT) 24 U/L (7-40) 23 U/L (7-40) Alkaline Phosphatase 102 U/L (46-116) 98 U/L (46-116) Aspartate Amino Transferase (AST) 27 U/L (13-40) 23 U/L (13-40) Total Bilirubin 0.4 mg/dL (0.2-1.0) 0.3 mg/dL (0.2-1.0) Urinalysis Test 07/04/24 21:26 07/05/24 10:00 Urine Mucus Few (None Seen) Urine Yeast (Budding) Occasional /hpf (None Urine Color Yellow (Yellow) Urine Clarity Cloudy (Clear) H Urine pH 5.5 (5.0-9.0) Urine Specific [place] 1.021 (1.001-1.035) Urine Protein 1+ (Negative) H Urine Ketones Trace (Negative) Urine Blood 1+ /uL (Negative) H Urine Nitrite Negative (Negative) Urine Bilirubin Negative (Negative) Urine Urobilinogen Normal mg/dL (Negative) Urine Leukocyte Esterase 3+ /uL (Negative) Urine RBC 14 /hpf (0 - 3) Urine WBC Clumps Present /hpf (None Seen) Urine Microscopic WBC 163 /HPF (0-3) H Urine Squamous Epithelial Cells None seen /hpf (<5) Urine Bacteria Few /hpf (None Seen) H Urine Glucose 4+ mg/dL (Normal) H Blood Gas Results Test 07/04/24 22:23 Arterial Blood pH 7.345 (7.350-7.450) FiO2 % 28.0 Assessment/Plan Assessment/Plan DKA (diabetic ketoacidosis) Hyponatremia Hyperkalemia Apqws-ub-aszhwgi kidney injury Influenza B Generalized weakness #Admit to intensive care unit # Breathing treatment #Pain control management # IV antibiotic management #Management of fluids and electrolytes #Continue insulin drip #DVT prophylaxis on SCDs #Repeat labs CBC, CMP in a.m. Plan discussed with: Other (straightedge man) Date of Service: Jul 05, 2024 Billing Provider: KIRSTY DIAZ MD Common Visit Codes: [id number] INP/OBS CARE(HIGH) KIRSTY DIAZ MD Jul 05, 2024 18:58
[2024-07-05 20:31] LABS: Alanine Aminotransferase 20 U/L (7-40); Alkaline Phosphatase 92 U/L (46-116); Anion Gap 7 (5-15); Aspartate Aminotransferase 31 U/L (13-40); Blood Urea Nitrogen 19 mg/dL (9-23); Carbon Dioxide 25 mmol/L (20-31); Chloride 102 mmol/L (98-107); Potassium 3.7 mmol/L (3.5-5.1)
[2024-07-05 20:32] LABS: Albumin 3.9 g/dL (3.2-4.8); Bilirubin, Total 0.4 mg/dL (0.2-1.0)
[2024-07-05 20:33] LABS: Glucose 218 mg/dL (74-106); Sodium 134 mmol/L (136-145)
[2024-07-05] MEDS: ATORVASTATIN 20 MG TAB PO SCH (22:00)
[2024-07-05] MEDS: D5W/SOD CHLO 0.9% 1,000 ML IV SCH (22:15)
[2024-07-06] VITALS (11 sets, daily range): BP systolic 100–109; BP diastolic 56–61; PULSE 71–91; RESP 12–19; TEMP 98.1–100.1; O2SAT 92–98
[2024-07-06] MEDS: InsuLIN REG 1unit/0.01ml Soln (100units/ml) ONE (01:24)
[2024-07-06] MEDS: InsuLIN REG 1unit/0.01ml Soln (100units/ml) SC ONE (01:30)
[2024-07-06 01:37] LABS: Alanine Aminotransferase 18 U/L (7-40); Albumin 3.4 g/dL (3.2-4.8); Alkaline Phosphatase 81 U/L (46-116); Anion Gap 7 (5-15); Aspartate Aminotransferase 29 U/L (13-40); BUN/Creatinine Ratio 23.3 (10.0-20.0); Bilirubin, Total 0.5 mg/dL (0.2-1.0); Blood Urea Nitrogen 20 mg/dL (9-23); Calcium 9.3 mg/dL (8.7-10.4); Carbon Dioxide 25 mmol/L (20-31); Chloride 101 mmol/L (98-107); Glucose 267 mg/dL (74-106); Potassium 3.7 mmol/L (3.5-5.1); Sodium 133 mmol/L (136-145); Total Protein 6.2 g/dL (5.7-8.2)
[2024-07-06] MEDS: InsuLIN REG 1unit/0.01ml Soln (100units/ml) SC SCH (03:54)
[2024-07-06] MEDS: ACCU-CHEK COMFORT CURVE STRIP VI SCH (03:59)
[2024-07-06 04:09] LABS: Alanine Aminotransferase 19 U/L (7-40); Albumin 3.4 g/dL (3.2-4.8); Alkaline Phosphatase 80 U/L (46-116); Anion Gap 7 (5-15); Aspartate Aminotransferase 29 U/L (13-40); BUN/Creatinine Ratio 20.9 (10.0-20.0); Blood Urea Nitrogen 18 mg/dL (9-23); Calcium 9.3 mg/dL (8.7-10.4); Carbon Dioxide 25 mmol/L (20-31); Chloride 102 mmol/L (98-107); Potassium 3.7 mmol/L (3.5-5.1)
[2024-07-06 04:10] LABS: Bilirubin, Total 0.5 mg/dL (0.2-1.0); Total Protein 6.2 g/dL (5.7-8.2)
[2024-07-06 04:14] LABS: Glucose 305 mg/dL (74-106); Sodium 134 mmol/L (136-145)
[2024-07-06] MEDS: DOCUSATE SOD 100 MG CAP PO PRN (16:50)
[2024-07-06] MEDS: ACETAMINOPHEN 325 MG TAB PO PRN (18:26)
--- NOTE | 2024-07-06 19:21 | DVHPN2 ---
Subjective discussed with patient and site safety representative Changes from previous H/P or p: No Changes Eyes: No Pain, No Vision change, No Conjunctivae inflammation, No Eyelid inflammation, No Other, No Redness ENT: No Ear pain, No Ear discharge, No Nose pain, No Nose discharge, No Nose congestion, No Mouth pain, No Mouth swelling, No Throat pain, No Throat swelling, No Other Cardiovascular: No Chest Pain, No Palpitations, No Orthopnea, No Paroxysmal Noc. Dyspnea, No Edema, No Lt Headedness, No Other Respiratory: Cough; No Dry; Shortness of breath; No SOB with excertion, No Wheezing, No Hemoptysis, No Pleuritic Pain, No Sputum, No Other Gastrointestinal: Nausea, Vomiting; No Abdominal Pain, No Diarrhea, No Constipation, No Melena, No Hematochezia, No Other Genitourinary: No Dysuria, No Frequency, No Incontinence, No Hematuria, No Retention, No Other Musculoskeletal: No other, No neck pain, No shoulder pain, No arm pain, No back pain, No hand pain, No leg pain, No foot pain Skin: No Rash, No Lesions, No Jaundice, No Bruising, No Other Objective Vitals Vital Signs Date Time Temp Pulse Resp B/P (MAP) Pulse Ox O2 Delivery O2 Flow Rate FiO2 07/06/24 17:45 98.1 82 18 109/59 (76) 98 98.1 07/06/24 10:00 Room Air* 0 21 Intake/Output Intake and Output 07/06/24 05:00 Intake Total 2531 ml Output Total 1800 ml Balance 731 ml Intake Oral 100 ml IV Total 2431 ml Output Urine Total 1750 ml Stool Total 50 ml General Appearance: Alert, Oriented X3 Medications Current Medications Medications Dose Ordered Sig/Charbel Route Start Time Stop Time Status Last Admin Dose Admin Dextrose 50 ml UD PRN IV 07/04/24 22:00 Insulin Glargine 15 units DAILY SC 07/05/24 10:00 07/06/24 11:00 15 UNITS Tamsulosin HCl 0.4 mg QPM PO 07/05/24 18:00 07/06/24 18:26 0.4 MG Atorvastatin Calcium 20 mg HS PO 07/05/24 22:00 07/05/24 22:00 20 MG Apixaban 5 mg BID PO 07/05/24 10:00 07/06/24 10:56 5 MG Acetaminophen/ Hydrocodone Bitart 1 tab Q4HP PRN PO 07/05/24 00:00 Ondansetron HCl 4 mg Q4HP PRN IV 07/05/24 00:00 Docusate Sodium 100 mg BIDPRN PRN PO 07/05/24 00:00 07/06/24 16:50 100 MG Acetaminophen 650 mg Q6HP PRN PO 07/05/24 00:00 07/06/24 18:26 650 MG Nitroglycerin 0.4 mg Q5MINP PRN SL 07/05/24 00:00 Morphine Sulfate 2 mg Q30M PRN IV 07/05/24 00:00 Dextrose/Sodium Chloride 1,000 ml @ 100 mls/hr Q10H IV 07/05/24 22:15 07/06/24 18:26 100 MLS/HR Diagnostic Test (Pha) 1 strip IQ4HR 07/06/24 04:00 07/06/24 16:30 1 STRIP Insulin Human Regular IQ4HR SC 07/06/24 04:00 07/06/24 16:44 12 UNITS Laboratory Results Laboratory Tests 07/05/24 04:00 07/06/24 03:38 Chemistry Test 07/05/24 20:06 07/06/24 01:06 07/06/24 03:38 Albumin 3.9 g/dL (3.2-4.8) 3.4 g/dL (3.2-4.8) 3.4 g/dL (3.2-4.8) Calcium Level 10.0 mg/dL (8.7-10.4) 9.3 mg/dL (8.7-10.4) 9.3 mg/dL (8.7-10.4) Total Protein 7.0 g/dL (5.7-8.2) 6.2 g/dL (5.7-8.2) 6.2 g/dL (5.7-8.2) LFT Test 07/05/24 20:06 07/06/24 01:06 07/06/24 03:38 Alanine Aminotransferase (ALT) 20 U/L (7-40) 18 U/L (7-40) 19 U/L (7-40) Alkaline Phosphatase 92 U/L (46-116) 81 U/L (46-116) 80 U/L (46-116) Aspartate Amino Transferase (AST) 31 U/L (13-40) 29 U/L (13-40) 29 U/L (13-40) Total Bilirubin 0.4 mg/dL (0.2-1.0) 0.5 mg/dL (0.2-1.0) 0.5 mg/dL (0.2-1.0) Urinalysis Test 07/04/24 21:26 07/05/24 10:00 Urine Mucus Few (None Seen) Urine Yeast (Budding) Occasional /hpf (None Urine Color Yellow (Yellow) Urine Clarity Cloudy (Clear) H Urine pH 5.5 (5.0-9.0) Urine Specific [place] 1.021 (1.001-1.035) Urine Protein 1+ (Negative) H Urine Ketones Trace (Negative) Urine Blood 1+ /uL (Negative) H Urine Nitrite Negative (Negative) Urine Bilirubin Negative (Negative) Urine Urobilinogen Normal mg/dL (Negative) Urine Leukocyte Esterase 3+ /uL (Negative) Urine RBC 14 /hpf (0 - 3) Urine WBC Clumps Present /hpf (None Seen) Urine Microscopic WBC 163 /HPF (0-3) H Urine Squamous Epithelial Cells None seen /hpf (<5) Urine Bacteria Few /hpf (None Seen) H Urine Glucose 4+ mg/dL (Normal) H Microbiology Microbiology Date/Time Source Procedure Growth Status 07/05/24 22:30 Nose MRSA Screen - Final Methicillin Resistant S.aureus Complete Assessment/Plan Assessment/Plan DKA (diabetic ketoacidosis) Hyponatremia Hyperkalemia Ornhi-pk-zkbrkmz kidney injury Influenza B Generalized weakness #Admit to intensive care unit # Breathing treatment #Pain control management # IV antibiotic management #Management of fluids and electrolytes #Continue insulin drip>change to long acting and diet #DVT prophylaxis on SCDs #Repeat labs CBC, CMP in a.m. Plan discussed with: Patient Date of Service: Jul 06, 2024 Billing Provider: KIRSTY DIAZ MD Common Visit Codes: [id number] INP/OBS CARE(HIGH) KIRSTY DIAZ MD Jul 06, 2024 19:21
[2024-07-07] VITALS (8 sets, daily range): BP systolic 102–127; BP diastolic 60–74; PULSE 61–88; RESP 18–20; TEMP 97.9–99.6; O2SAT 95–99
[2024-07-07 08:53] LABS: Hepatitis B Surface Antigen Negative (Negative)
[2024-07-07 09:12] LABS: Hepatitis C Antibody Negative (Negative)
[2024-07-07] MEDS ORDERED: MEROPENEM 1GM IVPB 50 ML IV ONE (11:15)
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
[2024-07-07] MEDS: OSELTAMIVIR 75 MG CAP PO ONE (12:22)
[2024-07-07] MEDS: MEROPENEM 1GM IVPB 50 ML IV SCH (16:02)
[2024-07-07] MEDS: OSELTAMIVIR 75 MG CAP PO SCH (21:44)
[2024-07-07] MEDS: MUPIROCIN 2% OINT 15gm or 22gm FOR MRSA NARES EACHNOSTRI SCH (22:04)
[2024-07-08] VITALS (13 sets, daily range): BP systolic 100–125; BP diastolic 66–76; PULSE 76–89; RESP 14–20; TEMP 97.5–101.5; O2SAT 93–100
[2024-07-08] MEDS: INSULIN LANTUS (GLARGINE) 1 /0.01ml (100units/ml) SC SCH (10:00)
[2024-07-08] MEDS: MUPIROCIN 2% OINT 15gm or 22gm FOR MRSA NARES EACHNOSTRI SCH (10:00)
[2024-07-08] MEDS ORDERED: guaiFENesin 200 MG/10 ML UD PO PRN (10:00)
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
[2024-07-08 11:37] LABS: Basophils # (auto) 0 10 ^3/uL (0-0.2); Basophils % (auto) 0.2 % (0.0-2.0); Lymphocytes # (auto) 0.8 10 ^3/uL (0.4-5.4); Lymphocytes % (auto) 10.4 % (10.0-50.0); Monocytes # (auto) 0.8 10 ^3/uL (0-1.3); Neutrophils # (auto) 5.8 10 ^3/uL (1.6-8.6)
[2024-07-08 11:40] LABS: Eosinophils # (auto) 0 10 ^3/uL (0-0.8); Eosinophils % (auto) 0.5 % (0.0-7.0); Hematocrit 38.3 % (41.0-53.0); Hemoglobin 12.8 g/dL (13.5-17.5); Mean Corpuscular Hemoglobin 25.5 pg (28.0-32.0); Mean Corpuscular Hgb Conc. 33.5 g/dL (32.0-36.0); Mean Corpuscular Volume 76.1 fL (80.0-100.0); Monocytes % (auto) 10.8 % (0.0-12.0); Neutrophils % (auto) 78.1 % (37.0-80.0); Nucleated Red Blood Cells % 0.1 %; Platelet Count (auto) 155 10^3/uL (140-450); Red Blood Cells 5.03 10^6/uL (4.5-5.90); Red Cell Distribution Width 18.6 % (11.8-14.3); White Blood Cell 7.5 10^3/uL (4.4-10.8)
[2024-07-08 11:50] LABS: INR 1.13 (0.9-1.15); Partial Thromboplastin Time 36.2 SEC (24.5-34.5); Prothrombin Time 11.8 sec (9.3-11.8)
[2024-07-08 11:56] LABS: Anion Gap 9 (5-15); Carbon Dioxide 25 mmol/L (20-31)
[2024-07-08 11:57] LABS: Calcium 9.1 mg/dL (8.7-10.4)
--- NOTE | 2024-07-08 11:58 | DVH ---
CHEST RADIOGRAPH Indication: pneumonia Technique: Single frontal view of the chest was obtained Comparison: None FINDINGS: Lines and Tubes: None Lungs: Left basilar opacity Pleura: No effusion. No pneumothorax. Cardiomediastinal contours: Unremarkable Bones: Spinal hardware. IMPRESSION: Left basilar opacity.
[2024-07-08 12:03] LABS: BUN/Creatinine Ratio 8.9 (10.0-20.0); Blood Urea Nitrogen < 5 mg/dL (9-23); Chloride 98 mmol/L (98-107); Glucose 274 mg/dL (74-106); Potassium 3.4 mmol/L (3.5-5.1); Sodium 132 mmol/L (136-145)
[2024-07-08] MEDS: FUROSEMIDE 20 MG/2 ML VIAL IV ONE (13:00)
[2024-07-08] MEDS: IPRATROPIUM BROM 0.5 MG/2.5ML INH SOL NEB SCH (13:13)
[2024-07-08] MEDS: ALBUTEROL SULF 2.5 MG/0.5ML(0.5%) NEB SOLN NEB SCH (13:13)
[2024-07-08] MEDS: ACETYLCYSTEINE 20%(200MG/ML) SOL 4ML NEB SCH (13:14)
--- NOTE | 2024-07-08 20:16 | DVHSR ---
APPROVED REPORT EXAM: Two-dimensional and M-mode echocardiogram with Doppler and color Doppler. Blood Pressure: 102/74 mmHg INDICATION Pneumonia RISK FACTORS Height: 69, Weight: 226 DIMENSIONS LVDd4.2 (3.8-5.7cm)LA (2D)4.0 (1.9-4.0cm)Aortic Root3.7 (2.0-3.7cm) LVDs2.9 (2.5-4.0cm)LA (MM) (1.9-4.0cm)Aortic Cusp Exc2.2 (1.5-2.0cm) EF (%) 60.0 (55-70%)Rt. Atrium4.7 (1.9-4.0cm)Asc. Aorta cm IVSd1.5 (0.7-1.1cm)RV (D) (1.8-2.4cm) PWd1.3 (0.7-1.1cm) Mitral Valve MitralMitral Stenosis E wave0.73m/sMV Mean GR.mmHg A wave0.63m/sMV Peak GR.mmHg E/A ratio1.22D MVAcm2 DECEL [id number] 1/2 [id number] IVRTmsDop MVA3.13cm2 Aortic Valve Aortic ValveAortic Stenosis V10.97m/Cuong Mean GR.3mmHg V21.22m/Cuong Peak GR.6mmHg LVOT Diameter2.5 (1.8-2.4cm)Doppler AVA3.90cm2 Pulmonic Valve V20.96m/s Other Information Technically limited study due to patient is quadriplegic and unable to turn. Patient was laying flat on his back diuring exam. Conclusion lvef 60% by visual estimate mild LVH left atrium enlarged mild noraml rv function no severe valve abnormaliteis noted
[2024-07-08] MEDS: HYDROcodone-ACET 5/325MG TAB PO PRN (21:07)
[2024-07-09] VITALS (14 sets, daily range): BP systolic 92–136; BP diastolic 52–85; PULSE 79–91; RESP 16–20; TEMP 99–100.4; O2SAT 90–100
[2024-07-09 10:58] LABS: Hematocrit 36.1 % (41.0-53.0); Mean Corpuscular Hemoglobin 25.2 pg (28.0-32.0); Mean Corpuscular Hgb Conc. 33.3 g/dL (32.0-36.0); Mean Corpuscular Volume 75.8 fL (80.0-100.0); Platelet Count (auto) 208 10^3/uL (140-450); Red Blood Cells 4.76 10^6/uL (4.5-5.90); Red Cell Distribution Width 18.8 % (11.8-14.3); White Blood Cell 7.5 10^3/uL (4.4-10.8)
[2024-07-09 11:18] LABS: Basophils % (manual) 0 (0.0-2.0); Blast Cells 0; Eosinophils % (manual) 0 (0-7); Metamyelocytes % 0; Myelocytes % 0; Promyelocytes % 0; Reactive Lymphocytes 0
[2024-07-09 12:29] LABS: Band Neutrophils % (manual) 6; Lymphocytes % (manual) 33 (10.0-50.0); Monocytes % (manual) 1 (0-12)
[2024-07-09 12:30] LABS: Platelet Estimate Adequate
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
[2024-07-09 15:44] LABS: Potassium 3.6 mmol/L (3.5-5.1)
[2024-07-09 15:45] LABS: Anion Gap 7 (5-15); Carbon Dioxide 29 mmol/L (20-31)
[2024-07-09 15:50] LABS: BUN/Creatinine Ratio 12.5 (10.0-20.0)
[2024-07-09 16:03] LABS: Blood Urea Nitrogen 8 mg/dL (9-23); Calcium 8.4 mg/dL (8.7-10.4); Chloride 96 mmol/L (98-107); Glucose 337 mg/dL (74-106); Sodium 132 mmol/L (136-145)
[2024-07-09] MEDS: ACCU-CHEK COMFORT CURVE STRIP VI SCH (17:10)
[2024-07-09] MEDS: FUROSEMIDE 20 MG/2 ML VIAL IV ONE (17:17)
[2024-07-09] MEDS: InsuLIN REG 1unit/0.01ml Soln (100units/ml) SC SCH (17:26)
[2024-07-09] MEDS: INSULIN LANTUS (GLARGINE) 1 /0.01ml (100units/ml) SC SCH (22:03)
[2024-07-10] VITALS (14 sets, daily range): BP systolic 106–126; BP diastolic 62–83; PULSE 64–94; RESP 17–21; TEMP 97.9–98.8; O2SAT 87–100
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
[2024-07-11] VITALS (15 sets, daily range): BP systolic 119–152; BP diastolic 70–94; PULSE 82–98; RESP 16–22; TEMP 97.9–99.2; O2SAT 90–100
[2024-07-11] MEDS: cefTRIAXone 1GM/50ML D5W 50 ML IV SCH (09:49)
[2024-07-11] MEDS ORDERED: BLOO1KIT60 XX (13:22)
[2024-07-11] MEDS ORDERED: METF-371 PO (13:22)
[2024-07-11] MEDS ORDERED: INSLANTI SC (13:22)
[2024-07-11] MEDS ORDERED: LANC-347 XX (13:22)
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
[2024-07-11] MEDS ORDERED: INSU1INJ19 SC (20:52)
== END 2024-07-11 18:50 | disposition home health service (06) | DRG 871 ==
LOC: ER 16:49 → OVERFLOW 23:54 → EAST 07-06 17:46 → TELE-EAST 07-07 05:46 → EAST 07-07 22:07 → WEST WING 07-08 09:51
PROVIDERS: ADMIT Nurse Practitioner Family; ATTEND Nurse Practitioner Acute Care
PROC: 05HD33Z Insertion of Infusion Device into Right Cephalic Vein, Percutaneous Approach (ICD-10-PCS; principal; 2024-07-05)
PROC: B54MZZA Ultrasonography of Right Upper Extremity Veins, Guidance (ICD-10-PCS; 2024-07-05)
DX: A41.51 Sepsis due to Escherichia coli [E. coli] (principal); E11.10 Type 2 diabetes mellitus with ketoacidosis without coma; I50.31 Acute diastolic (congestive) heart failure; I13.0 Hypertensive heart and chronic kidney disease with heart failure and stage 1 through stage 4 chronic kidney disease, or unspecified chronic kidney disease; E87.1 Hypo-osmolality and hyponatremia; N17.9 Acute kidney failure, unspecified; N39.0 Urinary tract infection, site not specified; E87.5 Hyperkalemia; Z20.822 Contact with and (suspected) exposure to COVID-19; J10.1 Influenza due to other identified influenza virus with other respiratory manifestations; N18.9 Chronic kidney disease, unspecified; E11.22 Type 2 diabetes mellitus with diabetic chronic kidney disease; K21.9 Gastro-esophageal reflux disease without esophagitis; D69.6 Thrombocytopenia, unspecified; K26.9 Duodenal ulcer, unspecified as acute or chronic, without hemorrhage or perforation; E66.9 Obesity, unspecified; B96.20 Unspecified Escherichia coli [E. coli] as the cause of diseases classified elsewhere; E78.5 Hyperlipidemia, unspecified; Z79.4 Long term (current) use of insulin; Z88.0 Allergy status to penicillin; Z79.84 Long term (current) use of oral hypoglycemic drugs; Z88.1 Allergy status to other antibiotic agents; Z68.32 Body mass index [BMI] 32.0-32.9, adult
CPT/HCPCS: 31720; 36415; 36600; 71045; 80048; 80053; 81001; 82010; 82805; 82962; 83036; 83605; 83735; 83880; 83930; 84100; 84484; 85007; 85025; 85027; 85610; 85730; 86803; 87081; 87086; 87088; 87186; 87340; 87426; 87804; 93005; 93306; 94640; 94668; 96360; 96372; 99291; G0378; J1815; J2003; J2185